=== PATIENT | female | born 1970 | race Caucasian/White ===

== ENCOUNTER 2017-12-06 19:48 | Emergency (ER) | payer MEDICARE, MEDICAID ==
[2017-12-06 20:50] VITALS: BP 149/89
--- NOTE | 2017-12-06 20:52 | EDM.PDOC ---
ED HPI GENERAL MEDICAL PROBLEM - General Chief Complaint: Lower Extremity Injury/Pain Stated Complaint: RIGHT LEG SWOLLEN Time Seen by Provider: 12/06/17 20:52 Source of Information: Reports: Patient History Limitations: Reports: No Limitations - History of Present Illness INITIAL COMMENTS - FREE TEXT/NARRATIVE: 47-year-old female attends the ED due to increased swelling and pain in her right lower extremity. She reports she fell going down some stairs outside her home about 9 days ago. She tripped and fell with direct blow to her right knee. She did attend the clinic and had x-rays done of the ankle she believes and it did not reveal any fractures. The knee was never x-rayed. Since that time she has been basically nonambulatory and resting a good deal. Over the last 2 days the leg has become much more ecchymotic swollen and erythematous over the anterior distal frye. The ankle itself is grossly edematous. She has no history of DVT. She denies shortness of breath or pleuritic chest pain or any hemoptysis. However O2 sats are 94% on room air. Onset: Gradual Onset Date: 11/27/17 Duration: Day(s): Location: Reports: Lower Extremity, Right (Tripped and fell while walking down stairs outside her home. She missed a step landing with a direct blow to her right anterior knee which became ecchymotic and swollen. She also injured her ankle. Apparently the ankle x-ray was obtained at the clinic but no fractures are identified.) Quality: Reports: Ache, Throbbing Severity: Moderate Improves with: Reports: None Worsens with: Reports: Movement Context: Reports: Trauma (Initial injury was trip and fall missing a stair outside her home with direct blow to the knee and injury to the ankle.). Denies : Activity (Especially attempt to walk.), Exercise, Sick Contact Associated Symptoms: Reports: No Other Symptoms Treatments [employer]: Reports: NSAIDS (Has been using 600 mg of Motrin every 6-8 hours.) Right Lower Knee Pain Score (Numeric/FACES): 5 - Related Data Allergies Allergy/AdvReac Type Severity Reaction Status Date / Time No Known Allergies Allergy Verified 12/06/17 20:51 Home Meds: Home Meds Lacosamide [Vimpat] 100 mg PO BID 02/18/14 [History] Phenytoin Sodium Extended [Dilantin] 100 mg PO QID 02/18/14 [History] ClonazePAM [KlonoPIN] 1 mg PO BID 06/20/14 [History] Past Medical History Neurological History: Reports: Seizure (Seizure disorder. She is on Dilantin and Vimpat.) Psychiatric History: Reports: Anxiety Social & Family History - Living Situation & Occupation Living situation: Reports: Single Occupation: Disabled Review of Systems - Review of Systems Review Of Systems: See Below Constitutional: Reports: No Symptoms Eyes: Reports: Glasses Ears: Reports: No Symptoms Nose: Reports: No Symptoms Mouth/Throat: Reports: No Symptoms Respiratory: Reports: No Symptoms Cardiovascular: Reports: No Symptoms GI/Abdominal: Reports: No Symptoms Genitourinary: Reports: No Symptoms Musculoskeletal: Reports: Other (Currently has right lower extremity pain from the knee down to the ankle.) Skin: Reports: Other (Has become erythematous ecchymotic and swollen distal tib- fib anteriorly. The entire leg is now very swollen.) Neurological: Reports: Other (Strip seizures well controlled on current medications) Psychiatric: Reports: Anxiety ED EXAM, GENERAL - Physical Exam Exam: See Below Exam Limited By: No Limitations General Appearance: Alert, WD/WN, No Apparent Distress Eye Exam: Bilateral Eye: Normal Inspection Throat/Mouth: Normal Inspection, Normal Lips, Normal Teeth, Normal Oropharynx Head: Atraumatic, Normocephalic Neck: Normal Inspection, Supple, Non-Tender, Full Range of Motion. No: Lymphadenopathy (L), Lymphadenopathy (R) Respiratory/Chest: No Respiratory Distress, Lungs Clear, Normal Breath Sounds, No Accessory Muscle Use, Chest Non-Tender. No: Rales, Rhonchi, Wheezing Cardiovascular: Regular Rate, Rhythm, No Gallop, No Murmur, No Rub. No: Normal Peripheral Pulses Peripheral Pulses: 0: Posterior Tibial (R), 1+: Dorsalis Pedis (R), 2+: Posterior Tibial (L), Dorsalis Pedis (L) (Marked swelling of the right lower extremity limits ability to palpate the posterior tibial pulse. The dorsalis pedis pulse appears to be normal.) Back Exam: Normal Inspection, Full Range of Motion Extremities: Other (Examination of the right lower extremity shows ecchymosis over the patella. Patellofemoral movement is normal. There is no crepitus or evidence of a patellar fracture clinically. Entire lower extremity is markedly edematous and swollen and skin is taut suggesting significant edema and possible DVT. There is an area of ecchymoses and slight erythema over the mid anterior distal leg. The ankle itself is markedly swollen both medially and laterally. She does have normal dorsiflexion of the foot.) Neurological: Alert, Oriented, CN II-XII Intact, Normal Cognition. No: Normal Gait Psychiatric: Normal Mood, Flat Affect Skin Exam: Warm, Intact, Normal Color Course - Vital Signs Last Recorded V/S: Last Vital Signs Temp 36.8 C 12/06/17 20:46 Pulse 100 12/06/17 20:46 Resp 18 12/06/17 20:46 BP 149/89 H 12/06/17 20:46 Pulse Ox 94 L 12/06/17 20:46 - Orders/Labs/Meds Orders: Active Orders 24 hr Category Date Time Status Tibia Fibula Rt [CR] Stat Exams 12/06/17 21:06 Taken VL Duplex Lwr Ext Veins Ltd Rt [US] Stat Exams 12/06/17 21:04 Taken Sodium Chloride 0.9% [Normal Saline] 1,000 ml Med 12/06/17 21:15 Active IV ASDIRECTED Medication Orders Sodium Chloride (Normal Saline) 1,000 mls @ 150 mls/hr IV ASDIRECTED KIM Last Admin: 12/06/17 21:36 Dose: 150 mls/hr Labs: Laboratory Tests 12/06/17 12/06/17 12/06/17 Range/Units 21:37 21:37 21:37 WBC 7.40 (3.98-10.04) K/mm3 RBC 4.49 (3.98-5.22) M/mm3 Hgb 14.0 (11.2-15.7) gm/L Hct 43.2 (34.1-44.9) % MCV 96.2 H (79.4-94.8) fl MCH 31.2 (25.6-32.2) pg MCHC 32.4 (32.2-35.5) g/dl RDW Std Deviation 47.3 H (36.4-46.3) fL Plt Count 174 L (182-369) K/mm3 MPV 12.0 (9.4-12.3) fl Neutrophils % (Manual) 38 L (40-60) % Band Neutrophils % 0 (0-10) % Lymphocytes % (Manual) 51 H (20-40) % Atypical Lymphs % 0 % Monocytes % (Manual) 9 (2-10) % Eosinophils % (Manual) 2 (0.7-5.8) % Basophils % (Manual) 0 L (0.1-1.2) Platelet Estimate Adequate RBC Morph Comment Normal PT 10.6 (9.5-12.1) SECONDS INR 0.97 APTT 26 (24-31) SECONDS Sodium 141 (136-145) mEq/L Potassium 3.3 L (3.5-5.1) mEq/L Chloride 106 (98-107) mEq/L Carbon Dioxide 27 (21-32) mEq/L Anion Gap 11.3 (5-15) BUN 9 (7-18) mg/dL Creatinine 0.8 (0.55-1.02) mg/dL Est Cr Clr Drug Dosing 79.63 mL/min Estimated GFR (MDRD) > 60 (>60) mL/min BUN/Creatinine Ratio 11.3 L (14-18) Glucose 101 (74-106) mg/dL Calcium 8.6 (8.5-10.1) mg/dL Total Bilirubin 0.1 L (0.2-1.0) mg/dL AST 12 L (15-37) U/L ALT 18 (14-59) U/L Alkaline Phosphatase 85 (46-116) U/L Total Protein 7.5 (6.4-8.2) g/dl Albumin 3.0 L (3.4-5.0) g/dl Globulin 4.5 gm/dL Albumin/Globulin Ratio 0.7 L (1-2) Phenytoin 3.4 L (10.0-20.0) ug/mL Meds: Medications Generic Name Dose Route Start Last Admin Trade Name Freq PRN Reason Stop Dose Admin Sodium Chloride 1,000 mls @ 150 mls/hr 12/06/17 21:15 12/06/17 21:36 Normal Saline IV 150 mls/hr ASDIRECTED KIM Administration - Radiology Interpretation Free Text/Narrative:: 47-year-old female attends the ED due to increased swelling and pain in her right lower extremity. Initial injury was 9 days ago when she tripped and fell on some stairs outside her home landing with a direct blow to her right knee. She also injured her ankle at that time. She was seen in the clinic the following day and x-rays were ankle apparently were obtained and did not reveal any fractures. She indicates no x-rays of the knee were obtained. Since that time she's been so much pain she has been relatively immobilized. Last 48 hours she is appreciated that the right lower extremities become much more swollen and taut and painful. Appreciates mild erythema and ecchymoses anterior aspect of the tibia distally. She is unable to weight-bear on the foot other than tippytoe weightbearing. Eyes any shortness of breath or pleuritic chest pain or hemoptysis. Note O2 sats only 94% on room air. Examination is strongly suspicious for a DVT in her right lower extremity. Plan x-rays of the right tib- fib to be done which will include her ankle and knee. Will not be ordered as it will be positive due to the amount of ecchymosis and swelling to the right lower extremity. Ultrasound will be carried out of the right lower extremity. - Re-Assessments/Exams Free Text/Narrative Re-Assessment/Exam: 12/06/17 22:25 Labs are back revealing a normal white count at 7.40. Differential is a right shift with 30% neutrophils no bands cells and 51% lymphocytes. MCV is mildly elevated at 96.2. Platelet count is normal at 174, 000. PT is 10.6 with an INR of 0.97. PTT is 26. Serum sodium is 141 with a potassium of 3.3. Cortisol 6 with a bicarbonate of 27. Anion gap is 11.3. BUNs 9 with a creatinine of 0.8. GFR is greater than 60. Glucose is 101 with a calcium of 8.6. Bilirubin is 0.1. Liver function otherwise normal. Dilantin level is 3.4 which is subtherapeutic. 12/06/17 22:29 x-ray of the right tib-fib and ankle reveal no fractures in the knee or ankle itself or tib-fib. Ultrasound of the lower extremity also shows no sign of DVT in the visualized common femoral-femoral, proximal deep femoral or popliteal veins. The veins demonstrate normal color flow normal compressible with normal phasic flow and augmentation response. No thrombus is visualized in the greater saphenous vein. No acute findings no popliteal cyst. Treatment will therefore be conservative with elevation of the leg is much as possible for the next 3 days. Continue Motrin 600 mg every 6 hours needed for pain relief. No constrictive bandages to raise wraps. Departure - Departure Time of Disposition: 22:42 Disposition: Home, Self-Care 01 Condition: Fair Clinical Impression: Contusion of right lower extremity Qualifiers: Encounter type: initial encounter Qualified Code(s): S80.11XA - Contusion of right lower leg, initial encounter - Discharge Information *PRESCRIPTION DRUG MONITORING PROGRAM REVIEWED*: No *COPY OF PRESCRIPTION DRUG MONITORING REPORT IN PATIENT KAYLYNN: No Referrals: PCP,None [Primary Care Provider] - Forms: ED Department Discharge Additional Instructions: Evaluation the emergency room today in regards to increased pain and swelling in the right lower extremity since initial injury 9 days ago. Initial injury was a trip and fall going down stairs outside of your home. Direct blow to the knee and injury to the ankle occurred at that time. X-rays of the ankle were previously done at the clinic and reportedly were normal. Repeat x-rays of the tib-fib including the knee and ankle today also revealed no evidence of broken bones. Concern arose due to the amount of swelling and bruising in the lower extremity of a possible blood clot. Therefore an ultrasound was done of the entire leg and no blood clots were identified. Therefore there is large amount of soft tissue swelling which means fluid is slipped outside of the veins under the skin causing the pain and swelling of the leg. Treatment is to elevate the leg is much as possible when you are sitting almost heart level --like 3 cushions when laying on the couch. Heat pack to the area for one half hour out of every 4 hours for the next 3 days until swelling resolves. Walking is much as possible will help the swelling go down. Expect gradual improvement over the next 2 weeks. Continue Motrin 600 mg every 6 hours as needed for pain relief. All of your other lab tests were completely normal today. - My Orders Last 24 Hours: My Active Orders 12/06/17 21:04 VL Duplex Lwr Ext Veins Ltd Rt [US] Stat 12/06/17 21:06 Tibia Fibula Rt [CR] Stat 12/06/17 21:15 Sodium Chloride 0.9% [Normal Saline] 1,000 ml IV ASDIRECTED - Assessment/Plan Last 24 Hours: My Active Orders 12/06/17 21:04 VL Duplex Lwr Ext Veins Ltd Rt [US] Stat 12/06/17 21:06 Tibia Fibula Rt [CR] Stat 12/06/17 21:15 Sodium Chloride 0.9% [Normal Saline] 1,000 ml IV ASDIRECTED
[2017-12-06] MEDS ORDERED: Sodium Chloride 0.9% 1,000 ML IV SCH (21:15)
== END 2017-12-06 23:03 | disposition home or self-care (01) ==
LOC: JD.ED 19:48
DX: S80.11XA Contusion of right lower leg, initial encounter (principal); X58.XXXA Exposure to other specified factors, initial encounter
CPT/HCPCS: 36415; 73590; 80053; 80185; 85007; 85027; 85610; 85730; 93971; 96360; 99284; J7040

== ENCOUNTER 2019-11-15 08:00 | Inpatient (IN) | payer MEDICARE, MEDICAID ==
[2019-12-06] MEDS ORDERED: Lidocaine 1%/Sod Bicarbonate in NS 8.4% 1 ML Syringe IDERM PRN (00:01)
[2019-12-06] MEDS ORDERED: Lactated Ringers 1,000 ML IV SCH (00:01)
[2019-12-06] MEDS ORDERED: Sodium Chloride 0.9% 10 ML Syringe FLUSH PRN (00:01)
[2019-12-06] MEDS ORDERED: Magnesium Hydroxide 400 MG/5 ML Susp 30 ML Cup PO PRN (06:35)
[2019-12-06] MEDS ORDERED: Naloxone 0.4 MG/ML SDV IVPUSH PRN (06:35)
[2019-12-06] MEDS ORDERED: Morphine 2 MG/ML SYRINGE IVPUSH PRN (06:35)
[2019-12-06] MEDS ORDERED: Ondansetron 4 MG/2 ML SDV IVPUSH PRN ×2 (06:35→09:34)
[2019-12-06] MEDS ORDERED: Bisacodyl 5 MG Tab PO PRN (06:35)
[2019-12-06] MEDS ORDERED: Cyclobenzaprine 10 MG Tab PO PRN (06:35)
[2019-12-06] MEDS ORDERED: Sennosides 8.6 MG Tab PO PRN (06:35)
[2019-12-06] MEDS ORDERED: Ketorolac 15 MG/ML SDV IVPUSH PRN ×2 (06:35→07:32)
[2019-12-06] MEDS ORDERED: Famotidine 20 MG Tab PO SCH (06:45)
[2019-12-06] MEDS ORDERED: ceFAZolin 2 GM in Premix Bag 1 BAG IV SCH (06:45)
[2019-12-06] MEDS ORDERED: Midazolam 1 MG/ML 2 ML SDV ONE ×2 (07:15→09:29)
[2019-12-06] MEDS ORDERED: Lidocaine 1% 4 ML ONE (07:15)
[2019-12-06] MEDS ORDERED: Propofol 200 MG/20 ML SDV ONE (07:15)
[2019-12-06] MEDS ORDERED: fentaNYL 100 MCG/2 ML SDV ONE (07:15)
[2019-12-06] MEDS ORDERED: EPINEPHrine 1 MG/ML SDV ONE (07:22)
[2019-12-06] MEDS ORDERED: Ropivacaine 0.5% 5 MG/ML 30 ML SDV ONE (07:22)
--- NOTE | 2019-12-06 08:02 | PCM.PREANE ---
Preanesthetic Assessment - Procedure Proposed Procedure: right tka - Anesthesia/Transfusion/Family Hx Anesthesia History: Prior Anesthesia Without Reaction Family History of Anesthesia Reaction: No Transfusion History: Unknown - Review of Systems General: No Symptoms Pulmonary: No Symptoms Cardiovascular: No Symptoms Gastrointestinal: No Symptoms Neurological: Seizure (last one 5 days ago- gets them monthly- no shaking just stares- moans- last 1-2 minutes) Other: Reports: Depression, Anxiety - Physical Assessment NPO Status Date: 12/05/19 NPO Status Time: 19:00 Vital Signs: Last Vital Signs Temp 98.4 F 12/06/19 07:20 Pulse 93 12/06/19 07:20 Resp 16 12/06/19 07:20 BP 142/94 H 12/06/19 07:20 Pulse Ox 95 12/06/19 07:20 Height: 5 ft 6 in Weight: 106.5 kg ASA Class: 3 Mental Status: Alert & Oriented x3 Airway Class: Mallampati = 1 Dentition: Reports: Normal Dentition Thyro-Mental Finger Breadths: 3 Mouth Opening Finger Breadths: 3 ROM/Head Extension: Full Lungs: Clear to Auscultation, Normal Respiratory Effort Cardiovascular: Regular Rate, Regular Rhythm - Lab Values: Laboratory Last Values COVID-19 PCR Not detected (NOT DETECT) 12/02/19 09:30 MRSA (PCR) Negative 11/16/19 11:10 - Allergies Allergies/Adverse Reactions: Allergies Allergy/AdvReac Type Severity Reaction Status Date / Time No Known Allergies Allergy Verified 12/06/19 07:53 - Blood Blood Available: No - Acknowledgements Anesthesia Type Planned: Spinal Pt an Appropriate Candidate for the Planned Anesthesia: Yes Alternatives and Risks of Anesthesia Discussed w Pt/Guardian: Yes Pt/Guardian Understands and Agrees with Anesthesia Plan: Yes PreAnesthesia Questionnaire HEENT History: Reports: Impaired Vision, Other (See Below) Other HEENT History: eustachian tube dysfunction, wears glasses Cardiovascular History: Reports: High Cholesterol, Hypertension, Other (See Below) Other Cardiovascular History: peripheral edema Respiratory History: Reports: None Gastrointestinal History: Reports: None Genitourinary History: Reports: None [employer] WORK[employer] History: Reports: None Musculoskeletal History: Reports: Osteoarthritis, Other (See Below) Other Musculoskeletal History: left radial head fracture Neurological History: Reports: Seizure Psychiatric History: Reports: Anxiety Endocrine/Metabolic History: Reports: Obesity/BMI 30+ Hematologic History: Reports: None Immunologic History: Reports: None Oncologic (Cancer) History: Reports: None Dermatologic History: Reports: None - Infectious Disease History Infectious Disease History: Reports: None - Past Surgical History Head Surgeries/Procedures: Reports: None HEENT Surgical History: Reports: Tonsillectomy Cardiovascular Surgical History: Reports: None Respiratory Surgical History: Reports: None GI Surgical History: Reports: Hernia Repair/Other Female Surgical History: Reports: Tubal Ligation Male Surgical History: Reports: None Endocrine Surgical History: Reports: None Neurological Surgical History: Reports: None Musculoskeletal Surgical History: Reports: None Oncologic Surgical History: Reports: None Dermatological Surgical History: Reports: None - SUBSTANCE USE Smoking Status *Q: Never Smoker Tobacco Use Within Last Twelve Months: No Second Hand Smoke Exposure: No Days Per Week of Alcohol Use: 0 Recreational Drug Use History: No - HOME MEDS Home Medications: Home Meds Phenytoin Sodium Extended [Dilantin] 300 mg PO BID 02/18/14 [History] ClonazePAM [KlonoPIN] 0.5 mg PO BID 06/20/14 [History] Cholecalciferol (Vitamin D3) [Vitamin D3] 5,000 unit PO DAILY 12/05/19 [History] Divalproex Sodium [Depakote] 1,500 mg PO BID 12/05/19 [History] Hydrocortisone Valerate [Hydrocortisone Valerate 0.2% Crm] 1 dose TOP ASDIRECTED PRN 12/05/19 [History] Lacosamide [Vimpat] 200 mg PO BID 12/05/19 [History] Multivitamin 1 tab PO DAILY 12/05/19 [History] Naproxen 500 mg PO BID 12/05/19 [History] Potassium Chloride 20 meq PO DAILY 12/05/19 [History] Rosuvastatin Calcium 20 mg PO DAILY 12/05/19 [History] - CURRENT (IN HOUSE) MEDS Current Meds: Current Medications Aspirin (Ecotrin) 325 mg PO BID KIM Bisacodyl (Dulcolax) 5 mg PO DAILY PRN PRN Reason: Constipation Morphine Sulfate 8 mg/Epinephrine HCl 0.3 mg/Cefuroxime Sodium 750 mg/Ketorolac Tromethamine 30 mg/Sodium Chloride 7.9 ml 0 mg .XX ASDIRECTED PRN PRN Reason: Pain Stop: 12/06/19 13:00 Cyclobenzaprine HCl (Flexeril) 5 mg PO TID PRN PRN Reason: Spasms Docusate Sodium (Colace) 100 mg PO BID KIM Famotidine (Pepcid) 20 mg PO Q12H [facility] Lactated Ringer's (Ringers, Lactated) 1,000 mls @ 125 mls/hr IV ASDIRECTED [facility] Stop: 12/06/19 23:00 Cefazolin Sodium/Dextrose 2 gm (/ Premix) 50 mls @ 100 mls/hr IV Q8H [facility] Stop: 12/06/19 23:59 Ketorolac Tromethamine (Toradol) 15 mg IVPUSH Q6H PRN PRN Reason: Pain Lidocaine/Sodium Bicarbonate (Buffered Lidocaine 1% In Ns 8.4%) 0.25 ml IDERM ONETIME PRN PRN Reason: Prior to IV Start Stop: 12/06/19 18:00 Magnesium Hydroxide (Milk Of Magnesia) 30 ml PO BID PRN PRN Reason: Constipation Morphine Sulfate (Morphine) 2 mg IVPUSH Q2H PRN PRN Reason: Breakthrough Pain Naloxone HCl (Narcan) 0.1 mg IVPUSH Q5M PRN PRN Reason: Oversedation Ondansetron HCl (Zofran) 4 mg IVPUSH Q6H PRN PRN Reason: Nausea/Vomiting Oxycodone/Acetaminophen (Percocet 325-5 Mg) 1 - 2 tab PO Q4H PRN PRN Reason: Pain Senna (Senna) 8.6 mg PO BID PRN PRN Reason: Constipation Sodium Chloride (Saline Flush) 10 ml FLUSH ASDIRECTED PRN PRN Reason: Keep Vein Open Stop: 12/06/19 18:00 Discontinued Medications Bupivacaine HCl (Sensorcaine-Mpf 0.25%) Confirm Administered Dose 30 ml .ROUTE .STK-MED ONE Stop: 12/06/19 07:42 Cefazolin Sodium (Ancef) Confirm Administered Dose 2 gm .ROUTE .STK-MED ONE Stop: 12/06/19 07:43 Epinephrine HCl (Adrenalin) Confirm Administered Dose 1 mg .ROUTE .STK-MED ONE Stop: 12/06/19 07:23 Famotidine (Pepcid) 20 mg PO Q12H [facility] Fentanyl (Sublimaze) Confirm Administered Dose 100 mcg .ROUTE .STK-MED ONE Stop: 12/06/19 07:16 Cefazolin Sodium/Dextrose 2 gm (/ Premix) 50 mls @ 100 mls/hr IV Q8H KIM Stop: 12/06/19 23:14 Lidocaine HCl (Xylocaine-Mpf 1%) Confirm Administered Dose 4 mls @ as directed .ROUTE .STK-MED ONE Stop: 12/06/19 07:16 Iodine (Iodine 2% Mild Tincture) Confirm Administered Dose 30 ml .ROUTE .STK-MED ONE Stop: 12/06/19 07:42 Ketorolac Tromethamine (Toradol) 15 mg IVPUSH Q6H PRN PRN Reason: Pain Midazolam HCl (Versed 1 Mg/Ml) Confirm Administered Dose 2 mg .ROUTE .STK-MED ONE Stop: 12/06/19 07:16 Propofol (Diprivan 20 Ml) Confirm Administered Dose 600 mg .ROUTE .STK-MED ONE Stop: 12/06/19 07:16 Ropivacaine (Naropin 0.5%) Confirm Administered Dose 30 ml .ROUTE .STK-MED ONE Stop: 12/06/19 07:23 Tranexamic Acid (Cyklokapron) Confirm Administered Dose 1,000 mg .ROUTE .STK-MED ONE Stop: 12/06/19 07:42 Vancomycin HCl (Vancomycin) Confirm Administered Dose 1 gm .ROUTE .STK-MED ONE Stop: 12/06/19 07:42
[2019-12-06] MEDS ORDERED: fentaNYL 100 MCG/2 ML SDV IVPUSH PRN (09:34)
[2019-12-06] MEDS ORDERED: HYDROmorphone 0.5 MG/0.5 ML Syringe IVPUSH PRN (09:34)
[2019-12-06] MEDS ORDERED: Lactated Ringers 1,000 ML ONE ×2 (10:11→10:42)
[2019-12-06] MEDS ORDERED: Ondansetron 4 MG/2 ML SDV ONE (10:11)
[2019-12-06] MEDS: Iodine/Sodium Iodide 2% Tincture 30 ML Bottle ONE ×2 (10:21→10:25)
[2019-12-06] MEDS: ceFAZolin 1 GM Vial ONE ×2 (10:21→10:28)
[2019-12-06] MEDS: Morphine 8 MG, EPINEPHrine 0.3 MG, Cefuroxime 750 MG, Ketorolac 30 MG, Sodium Chloride ... PRN ×10 (10:22→10:30)
[2019-12-06] MEDS: Bupivacaine 0.25% 10 ML SDV ONE ×2 (10:22→10:30)
[2019-12-06] MEDS: Vancomycin 1 GM SDV ONE ×2 (10:23→10:36)
[2019-12-06] MEDS ORDERED: Ketorolac 30 MG/ML SDV ONE (10:53)
--- NOTE | 2019-12-06 11:06 | PCM.POSTAN ---
POST ANESTHESIA ASSESSMENT - MENTAL STATUS Mental Status: Alert, Oriented - VITAL SIGNS Vital Signs: Last Vital Signs Temp 98.4 F 12/06/19 07:20 Pulse 93 12/06/19 07:20 Resp 16 12/06/19 07:20 BP 142/94 H 12/06/19 07:20 Pulse Ox 95 12/06/19 07:20 1102 112/68 15 79 97.6 96% - RESPIRATORY Respiratory Status: Respiratory Rate WNL, Airway Patent, O2 Saturation Stable, Supplemental Oxygen - CARDIOVASCULAR CV Status: Pulse Rate WNL, Blood Pressure Stable - GASTROINTESTINAL GI Status: No Symptoms - PAIN Pain Score: 0 - POST OP HYDRATION Hydration Status: Adequate & Stable
--- NOTE | 2019-12-06 11:26 | PCM.SN.2 ---
- Free Text/Narrative Note: Right selective femoral nerve block at the adductor canal for post-procedure pain control under US guidance requested by Dr. Horowitz. Date: 12/07/19 Time Out: 1110 Start: 1112 End: 1120 Chart reviewed. Consent signed. Questions answered. Appropriate monitors applied. Time out performed. Right mid-shaft femur identified with ultrasound, scanning medially of femur, the femoral artery in the adductor canal visualized, and the femoral nerve located laterally to the artery. The skin was prepped lateral to the ultrasound probe with chlorahexadine times two. The 21ga 4 insulated block needle was inserted under direct ultrasound guidance into the adductor canal. 25mL of 0.5% ropivacaine with 1:200,000 epinephrine was injected circumferentially around the nerve with intermittent negative aspiration noted. Patient tolerated the procedure well. Sterile technique noted along with sterile gloves, mask, and sterile probe cover. See picture on progress note and vital signs on nurses notes. Block completed in PACU. Kyle Brambila CRNA
--- NOTE | 2019-12-06 13:05 | CR ---
Right knee: AP and lateral views of the right knee were obtained. Comparison: No previous right knee exam. Knee prosthesis is seen. Components are aligned. Soft tissue air is noted from the surgical procedure. Impression: 1. Satisfactory postop radiographic appearance of recently placed right knee prosthesis. Diagnostic code #2 This report was dictated in MDT
[2019-12-06] MEDS ORDERED: HYDROCORTISONE VALERATE TOP PRN (14:47)
--- NOTE | 2019-12-06 14:50 | PCM.CONS ---
H&P History of Present Illness - General Date of Service: 12/06/19 Admit Problem/Dx: Admission Diagnosis/Problem Admission Diagnosis/Problem Osteoarthritis of knee Source of Information: Patient History Limitations: Reports: No Limitations - History of Present Illness Initial Comments - Free Text/Narative: The patient is a 49 year old female with a past medical history of dyslipidemia, osteoarthritis and seizure disorder. She is admitted to the hospital today under the care of Dr. Horowitz, orthopedic surgeon, who performed left total knee arthroplasty today. The hospitalist team is consulted for medical management of comorbid conditions. The patient tolerated surgery well. She denies history of internal bleeding or blood clotting. Last bowel movement was last night and was without any obvious blood and was not dark. She does have seizures that last about 1-2 minutes and usually happen monthly with her menstrual cycle. Her last seizure was about 4 weeks ago. Her pain is currently well controlled. She denies shortness of breath, palpitations, chest pain. She does no use oxygen or CPAP at home. No recent fevers or chills. No cough. Vital signs are stable. - Related Data Allergies/Adverse Reactions: Allergies Allergy/AdvReac Type Severity Reaction Status Date / Time No Known Allergies Allergy Verified 12/06/19 14:53 Home Medications: Home Meds Phenytoin Sodium Extended [Dilantin] 300 mg PO BID 02/18/14 [History] ClonazePAM [KlonoPIN] 0.5 mg PO BID 06/20/14 [History] Cholecalciferol (Vitamin D3) [Vitamin D3] 5,000 unit PO DAILY 12/05/19 [History] Divalproex Sodium [Depakote] 1,500 mg PO BID 12/05/19 [History] Hydrocortisone Valerate [Hydrocortisone Valerate 0.2% Crm] 1 dose TOP ASDIRECTED PRN 12/05/19 [History] Lacosamide [Vimpat] 200 mg PO BID 12/05/19 [History] Multivitamin 1 tab PO DAILY 12/05/19 [History] Naproxen 500 mg PO BID 12/05/19 [History] Potassium Chloride 20 meq PO DAILY 12/05/19 [History] Rosuvastatin Calcium 20 mg PO DAILY 12/05/19 [History] Past Medical History HEENT History: Reports: Impaired Vision, Other (See Below) Other HEENT History: eustachian tube dysfunction, wears glasses Cardiovascular History: Reports: High Cholesterol, Hypertension, Other (See Below) Other Cardiovascular History: peripheral edema Respiratory History: Reports: None Gastrointestinal History: Reports: None Genitourinary History: Reports: None 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: 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: None Musculoskeletal History: Reports: Osteoarthritis, Other (See Below) Other Musculoskeletal History: left radial head fracture Neurological History: Reports: Seizure Psychiatric History: Reports: Anxiety Endocrine/Metabolic History: Reports: Obesity/BMI 30+ Hematologic History: Reports: None Immunologic History: Reports: None Oncologic (Cancer) History: Reports: None Dermatologic History: Reports: None - Infectious Disease History Infectious Disease History: Reports: None - Past Surgical History Head Surgeries/Procedures: Reports: None HEENT Surgical History: Reports: Tonsillectomy Cardiovascular Surgical History: Reports: None Respiratory Surgical History: Reports: None GI Surgical History: Reports: Hernia Repair/Other Female Surgical History: Reports: Tubal Ligation Male Surgical History: Reports: None Endocrine Surgical History: Reports: None Neurological Surgical History: Reports: None Musculoskeletal Surgical History: Reports: None Oncologic Surgical History: Reports: None Dermatological Surgical History: Reports: None Social & Family History - Tobacco Use Smoking Status *Q: Never Smoker Second Hand Smoke Exposure: No - Caffeine Use Caffeine Use: Reports: Soda - Alcohol Use Days Per Week of Alcohol Use: 0 - Recreational Drug Use Recreational Drug Use: No - Living Situation & Occupation Living situation: Reports: Single Occupation: Disabled H&P Review of Systems - Review of Systems: Review Of Systems: See Below General: Denies: Fever, Weakness, Decreased Appetite HEENT: Denies: Headaches, Visual Changes Pulmonary: Denies: Shortness of Breath, Wheezing, Cough Cardiovascular: Reports: Edema (at the end of the day, feet swell). Denies: Chest Pain, Palpitations, Orthopnea Genitourinary: Denies: Frequency, Burning, Pain, Urgency Skin: Denies: Bruising, Rash Psychiatric: Reports: Anxiety. Denies: Confusion, Depression Neurological: Denies: Confusion, Dizziness, Headache, Numbness Hematologic/Lymphatic: Denies: Easy Bleeding Exam - Exam Exam: See Below - Vital Signs Vital Signs: Last Vital Signs Temp 98 F 12/06/19 11:50 Pulse 93 12/06/19 07:20 Resp 13 12/06/19 11:50 BP 124/83 12/06/19 11:50 Pulse Ox 96 12/06/19 11:50 Weight: 234 lb 12.677 oz - Exam General: Alert, Oriented, Cooperative HEENT: Mucosa Moist & [place], Pupils Equal, Pupils Reactive Neck: Supple, Trachea Midline Lungs: Clear to Auscultation, Normal Respiratory Effort. No: Crackles, Rales, Rhonchi, Wheezing Cardiovascular: Regular Rate, Regular Rhythm. No: Systolic Murmur, Rubs GI/Abdominal Exam: Normal Bowel Sounds, Soft, Non-Tender, No Distention Extremities: Normal Inspection, Normal Capillary Refill, Other (Right knee in ROSA bandage) Skin: Warm, Dry, Intact Neuro Extensive - Mental Status: Alert, Oriented x3, Normal Mood/Affect Psychiatric: Alert, Normal Affect, Normal Mood - Patient Data Result Diagrams: 12/06/19 14:19 12/06/19 15:52 Sepsis Event Note - Evaluation Sepsis Screening Result: No Definite Risk - Focused Exam Vital Signs: Vital Signs Temp Pulse Resp BP Pulse Ox Pulse Ox Pulse Ox 12/06/19 11:50 98 F 13 124/83 94 L 96 12/06/19 11:45 15 130/89 95 12/06/19 11:30 16 113/73 100 100 12/06/19 11:15 16 111/79 98 98 12/06/19 11:02 97.6 F 15 112/68 96 96 12/06/19 07:20 98.4 F 93 16 142/94 H 95 Consult PN Assessment/Plan Procedures: Procedures ASSAY DIPROPYLACETIC ACD TOT (10/21/17) ASSAY OF MAGNESIUM (02/18/14) ASSAY OF PHENYTOIN TOTAL (12/06/17) BL SMEAR W/DIFF WBC COUNT (12/06/17) COMPLETE CBC AUTOMATED (12/06/17) COMPLETE CBC W/AUTO DIFF WBC (02/18/14) COMPREHEN METABOLIC PANEL (12/06/17) ELECTROCARDIOGRAM TRACING (02/18/14) EMERGENCY DEPT VISIT (12/06/17) EMERGENCY DEPT VISIT (06/20/14) EMERGENCY DEPT VISIT (02/18/14) EXTREMITY STUDY (12/06/17) HYDRATE IV INFUSION ADD-ON (02/18/14) HYDRATION IV INFUSION INIT (12/06/17) IMMUNIZATION ADMIN (06/20/14) PROTHROMBIN TIME (12/06/17) ROUTINE VENIPUNCTURE (12/06/17) RPR S/N/AX/GEN/TRNK2.6-7.5CM (06/20/14) TDAP VACCINE 7 YRS/> IM (06/20/14) THROMBOPLASTIN TIME PARTIAL (12/06/17) X-RAY EXAM OF LOWER LEG (12/06/17) (1) Osteoarthritis of right knee SNOMED Code(s): 420129043908066 Code(s): M17.11 - UNILATERAL PRIMARY OSTEOARTHRITIS, RIGHT KNEE Current Visit: Yes (2) Dyslipidemia SNOMED Code(s): 893238152 Code(s): E78.5 - HYPERLIPIDEMIA, UNSPECIFIED Current Visit: Yes (3) Seizure disorder SNOMED Code(s): 906441535 Code(s): G40.909 - EPILEPSY, UNSP, NOT INTRACTABLE, WITHOUT STATUS EPILEPTICUS Current Visit: No (4) Thrombocytopenia SNOMED Code(s): 986296364 Code(s): D69.6 - THROMBOCYTOPENIA, UNSPECIFIED Current Visit: Yes (5) Hypokalemia SNOMED Code(s): 45610169 Code(s): E87.6 - HYPOKALEMIA Current Visit: Yes Problem List Initiated/Reviewed/Updated: Yes My Orders Last 24 Hours: My Active Orders 12/06/19 14:19 BMP [BASIC METABOLIC PANEL,BMP] [CHEM] Routine CBC WITH AUTO DIFF [HEME] Routine MAGNESIUM [CHEM] Routine PHOSPHORUS [CHEM] Routine Plan: Osteoarthritis s/p left knee arthroplasty POD 0 Persaud perioperative risk assessment indicates pt has a 0.12% risk of HI or cardiac arrest in post operative period. PLAN -Patient is admitted to hospital under Dr. Horowitz, orthopedic surgeon -PT ordered -Pain management as stated below -Will check cardiac enzymes after surgery. -DVT prophylaxis per Orthopedic surgery Seizure disorder Has partial seizures during menstruation each month Home medications of Depakote, clonazepam BID, lacosamide, and phenytoin PLAN -Continue Depakote 1500mg BID -Continue phenytoin 300mg oral BID -Continue Lacosamide 200mg oral BID -Continue clonazepam 0.5mg oral BID -Seizure precautions Thrombocytopenia Platelets are 87 PLAN -Holding off on aspirin, NSAIDs -Will check in AM -Watch for signs of bleeding Hypokalemia Potassium 3.3 PLAN -Giving KCl 40meq po x1. -Recheck in the AM. Vitamin D deficiency Pt takes Vitamin D3 5000u daily at home PLAN -Continue vitamin D supplementation. Hypercholesterolemia Home medication is rosuvastatin 20mg oral daily PLAN -Continue rosuvastatin. Obesity BMI 38 PLAN -Will discuss diet and exercise on discharge. -Will check Hgb A1c in AM. Infection prophylaxis. Pt was given cefazolin in perioperative period. Incentive spirometer. GI prophylaxis. Per orthopedic surgery- pepcid 20mg oral BID. Zofran 4mg IV q4h as needed for nausea. Constipation prophylaxis. Per orthopedic surgery- docusate BID scheduled, milk of mag and dulcolax suppository as needed for constipation. DVT prophylaxis. Hospital DVT prophylaxis per orthopedic surgery. For now, SCDs and antiembolic stockings. Trending H/H and platelets to decide on anticoagulation. Disposition. She will work with physical therapy to further assess if patient will need furth er work with rehabilitation. Discharge per orthopedic surgery.
[2019-12-06] MEDS ORDERED: LACOSAMIDE 200 MG PO SCH ×2 (15:00→21:00)
[2019-12-06] MEDS: ceFAZolin 2 GM in Premix Bag 1 BAG IV SCH ×2 (16:27→23:45)
[2019-12-06] MEDS: Phenytoin 100 MG Cap.ER PO SCH (16:28)
[2019-12-06] MEDS: ClonazePAM 0.5 MG Tab PO SCH (16:29)
[2019-12-06] MEDS ORDERED: Potassium Chloride 20 MEQ Tab.ER PO ONE (16:30)
[2019-12-06] MEDS: Acetaminophen/oxyCODONE 325-5 MG Tab PO PRN ×2 (17:46→23:47)
[2019-12-06] MEDS ORDERED: Phenytoin 100 MG Cap.ER PO SCH (21:00)
[2019-12-06] MEDS ORDERED: ClonazePAM 0.5 MG Tab PO SCH (21:00)
[2019-12-06] MEDS: Famotidine 20 MG Tab PO SCH (21:08)
[2019-12-06] MEDS: Docusate Sodium 100 MG Cap PO SCH (21:09)
[2019-12-06] MEDS: DIVALPROEX SODIUM 500 MG PO SCH ×2 (22:07→22:09)
[2019-12-07] MEDS: Phenytoin 100 MG Cap.ER PO SCH ×2 (03:18→14:27)
[2019-12-07] MEDS: LACOSAMIDE 200 MG PO SCH ×2 (03:18→14:28)
[2019-12-07] MEDS: ClonazePAM 0.5 MG Tab PO SCH ×2 (03:19→14:26)
[2019-12-07] MEDS: Acetaminophen/oxyCODONE 325-5 MG Tab PO PRN ×3 (03:25→15:13)
[2019-12-07 07:32] LABS: HEMOGLOBIN A1C 5.5 % (4.50-6.20)
[2019-12-07] MEDS: Famotidine 20 MG Tab PO SCH (08:16)
[2019-12-07] MEDS: Docusate Sodium 100 MG Cap PO SCH (08:17)
--- NOTE | 2019-12-07 08:20 | PCM48HPAN ---
Post Anesthesia Note - EVALUATION WITHIN 48HRS OF ANESTHETIC Vital Signs in Normal Range: Yes Patient Participated in Evaluation: Yes Respiratory Function Stable: Yes Airway Patent: Yes Cardiovascular Function Stable: Yes Hydration Status Stable: Yes Pain Control Satisfactory: Yes Nausea and Vomiting Control Satisfactory: Yes Mental Status Recovered: Yes Vital Signs: Last Vital Signs Temp 37.1 C 12/07/19 03:34 Pulse 93 12/06/19 23:48 Resp 20 12/07/19 03:34 BP 118/69 12/07/19 03:34 Pulse Ox 91 L 12/07/19 03:34 - COMMENTS/OBSERVATIONS Free Text/Narrative:: no anesthesia complications noted
--- NOTE | 2019-12-07 08:42 | PCM.SURGPN ---
- General Info Date of Service: 12/07/19 POD#: 1 Functional Status: Reports: Pain Controlled, Tolerating Diet, Ambulating, Urinating, Incentive Spirometry, Other (Nursing states the pt is doing well with mobility.) - Patient Data Vitals - Most Recent: Last Vital Signs Temp 98.8 F 12/07/19 03:34 Pulse 93 12/06/19 23:48 Resp 20 12/07/19 03:34 BP 118/69 12/07/19 03:34 Pulse Ox 91 L 12/07/19 03:34 Weight - Most Recent: 241 lb I&O - Last 24 Hours: Intake & Output 12/06/19 12/07/19 12/07/19 22:59 06:59 14:59 Intake Total 2120 250 Output Total 1500 Balance 2120 -1250 Lab Results Last 24 Hrs: Laboratory Results - last 24 hr 12/06/19 12/06/19 12/06/19 Range/Units 14:19 15:52 15:52 WBC 7.21 (3.98-10.04) K/mm3 RBC 3.02 L (3.98-5.22) M/mm3 Hgb 9.6 L D (11.2-15.7) gm/dl Hct 30.8 L (34.1-44.9) % MCV 102.0 H D (79.4-94.8) fl MCH 31.8 (25.6-32.2) pg MCHC 31.2 L (32.2-35.5) g/dl RDW Std Deviation 48.4 H (36.4-46.3) fL Plt Count 87 L D (182-369) K/mm3 MPV 12.0 (9.4-12.3) fl Neut % (Auto) 60.1 (34.0-71.1) % Lymph % (Auto) 23.9 (19.3-51.7) % Fisher % (Auto) 13.9 H (4.7-12.5) % Eos % (Auto) 1.9 (0.7-5.8) Baso % (Auto) 0.1 (0.1-1.2) % Neut # (Auto) 4.33 (1.56-6.13) K/mm3 Lymph # (Auto) 1.72 (1.18-3.74) K/mm3 Fisher # (Auto) 1.00 H (0.24-0.36) K/mm3 Eos # (Auto) 0.14 (0.04-0.36) K/mm3 Baso # (Auto) 0.01 (0.01-0.08) K/mm3 Manual Slide Review Abnormal smear Sodium 141 (136-145) mEq/L Potassium 3.3 L (3.5-5.1) mEq/L Chloride 106 (98-107) mEq/L Carbon Dioxide 29 (21-32) mEq/L Anion Gap 9.3 (5-15) BUN 8 (7-18) mg/dL Creatinine 0.8 (0.55-1.02) mg/dL Est Cr Clr Drug Dosing 77.88 mL/min Estimated GFR (MDRD) > 60 (>60) mL/min BUN/Creatinine Ratio 10.0 L (14-18) Glucose 121 H (74-106) mg/dL Hemoglobin A1c (4.50-6.20) % Calcium 8.2 L (8.5-10.1) mg/dL Phosphorus 2.8 (2.6-4.7) mg/dL Magnesium 1.8 (1.8-2.4) mg/dl Total Bilirubin (0.2-1.0) mg/dL AST (15-37) U/L ALT (14-59) U/L Alkaline Phosphatase (46-116) U/L Troponin I (0.00-0.056) ng/mL Total Protein (6.4-8.2) g/dl Albumin (3.4-5.0) g/dl Globulin gm/dL Albumin/Globulin Ratio (1-2) 12/07/19 12/07/19 12/07/19 Range/Units 06:05 06:05 06:05 WBC 8.36 (3.98-10.04) K/mm3 RBC 3.97 L (3.98-5.22) M/mm3 Hgb 12.7 D (11.2-15.7) gm/dl Hct 40.1 (34.1-44.9) % MCV 101.0 H (79.4-94.8) fl MCH 32.0 (25.6-32.2) pg MCHC 31.7 L (32.2-35.5) g/dl RDW Std Deviation 50.3 H (36.4-46.3) fL Plt Count 113 L (182-369) K/mm3 MPV 12.8 H (9.4-12.3) fl Neut % (Auto) (34.0-71.1) % Lymph % (Auto) (19.3-51.7) % Fisher % (Auto) (4.7-12.5) % Eos % (Auto) (0.7-5.8) Baso % (Auto) (0.1-1.2) % Neut # (Auto) (1.56-6.13) K/mm3 Lymph # (Auto) (1.18-3.74) K/mm3 Fisher # (Auto) (0.24-0.36) K/mm3 Eos # (Auto) (0.04-0.36) K/mm3 Baso # (Auto) (0.01-0.08) K/mm3 Manual Slide Review Sodium 139 (136-145) mEq/L Potassium 3.9 (3.5-5.1) mEq/L Chloride 105 (98-107) mEq/L Carbon Dioxide 25 (21-32) mEq/L Anion Gap 12.9 (5-15) BUN 7 (7-18) mg/dL Creatinine 0.8 (0.55-1.02) mg/dL Est Cr Clr Drug Dosing 77.88 mL/min Estimated GFR (MDRD) > 60 (>60) mL/min BUN/Creatinine Ratio 8.8 L (14-18) Glucose 126 H (74-106) mg/dL Hemoglobin A1c 5.50 (4.50-6.20) % Calcium 8.2 L (8.5-10.1) mg/dL Phosphorus (2.6-4.7) mg/dL Magnesium (1.8-2.4) mg/dl Total Bilirubin 0.3 (0.2-1.0) mg/dL AST 12 L (15-37) U/L ALT 19 (14-59) U/L Alkaline Phosphatase 61 (46-116) U/L Troponin I < 0.017 (0.00-0.056) ng/mL Total Protein 7.0 (6.4-8.2) g/dl Albumin 2.8 L (3.4-5.0) g/dl Globulin 4.2 gm/dL Albumin/Globulin Ratio 0.7 L (1-2) 12/07/19 Range/Units 07:50 WBC (3.98-10.04) K/mm3 RBC (3.98-5.22) M/mm3 Hgb (11.2-15.7) gm/dl Hct (34.1-44.9) % MCV (79.4-94.8) fl MCH (25.6-32.2) pg MCHC (32.2-35.5) g/dl RDW Std Deviation (36.4-46.3) fL Plt Count (182-369) K/mm3 MPV (9.4-12.3) fl Neut % (Auto) (34.0-71.1) % Lymph % (Auto) (19.3-51.7) % Fisher % (Auto) (4.7-12.5) % Eos % (Auto) (0.7-5.8) Baso % (Auto) (0.1-1.2) % Neut # (Auto) (1.56-6.13) K/mm3 Lymph # (Auto) (1.18-3.74) K/mm3 Fisher # (Auto) (0.24-0.36) K/mm3 Eos # (Auto) (0.04-0.36) K/mm3 Baso # (Auto) (0.01-0.08) K/mm3 Manual Slide Review Sodium (136-145) mEq/L Potassium (3.5-5.1) mEq/L Chloride (98-107) mEq/L Carbon Dioxide (21-32) mEq/L Anion Gap (5-15) BUN (7-18) mg/dL Creatinine (0.55-1.02) mg/dL Est Cr Clr Drug Dosing mL/min Estimated GFR (MDRD) (>60) mL/min BUN/Creatinine Ratio (14-18) Glucose (74-106) mg/dL Hemoglobin A1c (4.50-6.20) % Calcium (8.5-10.1) mg/dL Phosphorus 3.0 (2.6-4.7) mg/dL Magnesium 1.7 L (1.8-2.4) mg/dl Total Bilirubin (0.2-1.0) mg/dL AST (15-37) U/L ALT (14-59) U/L Alkaline Phosphatase (46-116) U/L Troponin I (0.00-0.056) ng/mL Total Protein (6.4-8.2) g/dl Albumin (3.4-5.0) g/dl Globulin gm/dL Albumin/Globulin Ratio (1-2) Med Orders - Current: Current Medications Aspirin (Ecotrin) 325 mg PO BID [facility] Bisacodyl (Dulcolax) 5 mg PO DAILY PRN PRN Reason: Constipation Cholecalciferol (Vitamin D3) 5,000 unit PO DAILY [facility] Last Admin: 12/07/19 08:17 Dose: 5,000 unit Documented by: Clonazepam (Klonopin) 0.5 mg PO BID@0400,1500 [facility] Last Admin: 12/07/19 03:19 Dose: 0.5 mg Documented by: Cyclobenzaprine HCl (Flexeril) 5 mg PO TID PRN PRN Reason: Spasms Divalproex Sodium (Depakote Er) 1,500 mg PO BID [facility] Last Admin: 12/06/19 22:09 Dose: Not Given Documented by: Docusate Sodium (Colace) 100 mg PO BID [facility] Last Admin: 12/07/19 08:17 Dose: 100 mg Documented by: Famotidine (Pepcid) 20 mg PO Q12H [facility] Last Admin: 12/07/19 08:16 Dose: 20 mg Documented by: Magnesium Hydroxide (Milk Of Magnesia) 30 ml PO BID PRN PRN Reason: Constipation Morphine Sulfate (Morphine) 2 mg IVPUSH Q2H PRN PRN Reason: Breakthrough Pain Multivitamins (Thera) 1 each PO DAILY [facility] Last Admin: 12/07/19 08:17 Dose: 1 each Documented by: Naloxone HCl (Narcan) 0.1 mg IVPUSH Q5M PRN PRN Reason: Oversedation Ondansetron HCl (Zofran) 4 mg IVPUSH Q6H PRN PRN Reason: Nausea/Vomiting Oxycodone/Acetaminophen (Percocet 325-5 Mg) 1 - 2 tab PO Q4H PRN PRN Reason: Pain Last Admin: 12/07/19 08:18 Dose: 2 tab Documented by: Lacosamide [Vimpat] (200 Mg Pt Own) 0 each PO BID@0400,1500 [facility] Last Admin: 12/07/19 03:18 Dose: 1 each Documented by: Phenytoin Sodium (Phenytoin) 300 mg PO BID@0400,1500 [facility] Last Admin: 12/07/19 03:18 Dose: 300 mg Documented by: Potassium Chloride (Klor-Con M20) 20 meq PO DAILY [facility] Last Admin: 12/07/19 08:17 Dose: 20 meq Documented by: Rivaroxaban (Xarelto) 10 mg PO ONETIME ONE Stop: 12/07/19 08:46 Rosuvastatin Calcium (Crestor) 20 mg PO DAILY [facility] Last Admin: 12/07/19 08:16 Dose: 20 mg Documented by: Senna (Senna) 8.6 mg PO BID PRN PRN Reason: Constipation Discontinued Medications Aspirin (Ecotrin) 325 mg PO BID [facility] Bupivacaine HCl (Sensorcaine-Mpf 0.25%) Confirm Administered Dose 30 ml .ROUTE .STK-MED ONE Stop: 12/06/19 07:42 Last Admin: 12/06/19 10:30 Dose: 30 ml Documented by: Cefazolin Sodium (Ancef) Confirm Administered Dose 2 gm .ROUTE .STK-MED ONE Stop: 12/06/19 07:43 Last Admin: 12/06/19 10:28 Dose: 2 gm Documented by: Clonazepam (Klonopin) 0.5 mg PO BID [facility] Morphine Sulfate 8 mg/Epinephrine HCl 0.3 mg/Cefuroxime Sodium 750 mg/Ketorolac Tromethamine 30 mg/Sodium Chloride 7.9 ml 0 mg .XX ASDIRECTED PRN PRN Reason: Pain Stop: 12/06/19 13:00 Last Admin: 12/06/19 10:30 Dose: 788.3 mg Documented by: Epinephrine HCl (Adrenalin) Confirm Administered Dose 1 mg .ROUTE .STK-MED ONE Stop: 12/06/19 07:23 Famotidine (Pepcid) 20 mg PO Q12H [facility] Last Admin: 12/06/19 19:29 Dose: Not Given Documented by: Fentanyl (Sublimaze) Confirm Administered Dose 100 mcg .ROUTE .STK-MED ONE Stop: 12/06/19 07:16 Fentanyl (Sublimaze) 50 mcg IVPUSH Q5M PRN PRN Reason: Pain Stop: 12/06/19 23:00 Hydromorphone HCl (Dilaudid) 0.5 mg IVPUSH Q10M PRN PRN Reason: Pain (severe 7-10) Stop: 12/06/19 23:00 Lactated Ringer's (Ringers, Lactated) 1,000 mls @ 125 mls/hr IV ASDIRECTED [facility] Stop: 12/06/19 23:00 Last Admin: 12/06/19 07:55 Dose: 125 mls/hr Documented by: Cefazolin Sodium/Dextrose 2 gm (/ Premix) 50 mls @ 100 mls/hr IV Q8H [facility] Stop: 12/06/19 23:14 Last Admin: 12/06/19 19:29 Dose: Not Given Documented by: Lidocaine HCl (Xylocaine-Mpf 1%) Confirm Administered Dose 4 mls @ as directed .ROUTE .STK-MED ONE Stop: 12/06/19 07:16 Cefazolin Sodium/Dextrose 2 gm (/ Premix) 50 mls @ 100 mls/hr IV Q8H [facility] Stop: 12/07/19 08:29 Last Admin: 12/06/19 23:45 Dose: 100 mls/hr Documented by: Lactated Ringer's (Ringers, Lactated) Confirm Administered Dose 1,000 mls @ as directed .ROUTE .STK-MED ONE Stop: 12/06/19 10:12 Lactated Ringer's (Ringers, Lactated) Confirm Administered Dose 1,000 mls @ as directed .ROUTE .STK-MED ONE Stop: 12/06/19 10:43 Iodine (Iodine 2% Mild Tincture) Confirm Administered Dose 30 ml .ROUTE .STK-MED ONE Stop: 12/06/19 07:42 Last Admin: 12/06/19 10:25 Dose: 18 ml Documented by: Ketorolac Tromethamine (Toradol) 15 mg IVPUSH Q6H PRN PRN Reason: Pain Ketorolac Tromethamine (Toradol) 15 mg IVPUSH Q6H PRN PRN Reason: Pain Ketorolac Tromethamine (Toradol) Confirm Administered Dose 30 mg .ROUTE .STK-MED ONE Stop: 12/06/19 10:54 Lidocaine/Sodium Bicarbonate (Buffered Lidocaine 1% In Ns 8.4%) 0.25 ml IDERM ONETIME PRN PRN Reason: Prior to IV Start Stop: 12/06/19 18:00 Last Admin: 12/06/19 07:55 Dose: 0.25 ml Documented by: Midazolam HCl (Versed 1 Mg/Ml) Confirm Administered Dose 2 mg .ROUTE .STK-MED ONE Stop: 12/06/19 07:16 Midazolam HCl (Versed 1 Mg/Ml) Confirm Administered Dose 2 mg .ROUTE .STK-MED ONE Stop: 12/06/19 09:30 Non-Formulary Medication (Hydrocortisone Valerate [Hydrocortisone Valerate 0.2% Crm]) 1 dose TOP ASDIRECTED PRN PRN Reason: skin complicaitons Ondansetron HCl (Zofran) 4 mg IVPUSH ONETIME PRN PRN Reason: Nausea/Vomiting Ondansetron HCl (Zofran) Confirm Administered Dose 4 mg .ROUTE .STK-MED ONE Stop: 12/06/19 10:12 Lacosamide [Vimpat] (200 Mg) 0 each PO BID [facility] Lacosamide [Vimpat] (200 Mg) 0 each PO BID@0400,1500 [facility] Last Admin: 12/06/19 17:00 Dose: 1 each Documented by: Phenytoin Sodium (Phenytoin) 300 mg PO BID [facility] Potassium Chloride (Klor-Con M20) 40 meq PO ONETIME ONE Stop: 12/06/19 16:31 Last Admin: 12/06/19 17:37 Dose: 40 meq Documented by: Propofol (Diprivan 20 Ml) Confirm Administered Dose 600 mg .ROUTE .STK-MED ONE Stop: 12/06/19 07:16 Rivaroxaban (Xarelto) 10 mg PO DAILY [facility] Last Admin: 12/07/19 08:18 Dose: 10 mg Documented by: Ropivacaine (Naropin 0.5%) Confirm Administered Dose 30 ml .ROUTE .STK-MED ONE Stop: 12/06/19 07:23 Sodium Chloride (Saline Flush) 10 ml FLUSH ASDIRECTED PRN PRN Reason: Keep Vein Open Stop: 12/06/19 18:00 Tranexamic Acid (Cyklokapron) Confirm Administered Dose 1,000 mg .ROUTE .STK-MED ONE Stop: 12/06/19 07:42 Last Admin: 12/06/19 10:34 Dose: 1,000 mg Documented by: Vancomycin HCl (Vancomycin) Confirm Administered Dose 1 gm .ROUTE .STK-MED ONE Stop: 12/06/19 07:42 Last Admin: 12/06/19 10:36 Dose: 1 gm Documented by: - Exam Wound/Incisions: Dressing Dry and Intact General: Alert, Cooperative, No Acute Distress Lungs: Normal Respiratory Effort Extremities: Other (NVS intact for RLE. Evangelista's negative for RLE.) Sepsis Event Note - Evaluation Sepsis Screening Result: No Definite Risk - Focused Exam Vital Signs: Vital Signs Temp Temp Pulse Resp BP BP Pulse Ox 12/07/19 03:34 98.8 F 20 118/69 91 L 12/06/19 23:48 98.1 F 93 16 128/84 99 12/06/19 20:49 98.4 F 85 18 128/78 93 L - Problem List Review Problem List Initiated/Reviewed/Updated: Yes - My Orders Last 24 Hours: Active Orders 24 hr Category Date Time Status Communication Order [RC] ASDIRECTED Care 12/07/19 08:36 Ordered Cooling Warming Measures [RC] ASDIRECTED Care 12/06/19 09:34 Active Oxygen Therapy [RC] ASDIRECTED Care 12/06/19 09:34 Active Pulse Oximetry [RC] ASDIRECTED Care 12/06/19 09:34 Active Ready for Discharge [RC] PER UNIT ROUTINE Care 12/07/19 08:36 Ordered Regular Diet [DIET] Diet 12/06/19 Lunch Active Aspirin [Ecotrin] Med 12/08/19 09:00 Active 325 mg PO BID Cholecalciferol (Vitamin D3) [Vitamin D3] Med 12/07/19 09:00 Active 5,000 unit PO DAILY ClonazePAM [KlonoPIN] Med 12/06/19 15:00 Active 0.5 mg PO BID@0400,1500 Divalproex Sodium [Depakote ER] Med 12/06/19 21:00 Active 1,500 mg PO BID Docusate Sodium [Colace] Med 12/06/19 21:00 Active 100 mg PO BID Famotidine [Pepcid] Med 12/06/19 21:00 Active 20 mg PO Q12H Multivitamins,Therapeutic [Thera] Med 12/07/19 09:00 Active 1 each PO DAILY Patient's Own Medication [Ptom] Med 12/07/19 04:00 Active 0 each PO BID@0400,1500 Phenytoin Med 12/06/19 15:00 Active 300 mg PO BID@0400,1500 Potassium Chloride [Klor-Con M20] Med 12/07/19 09:00 Active 20 meq PO DAILY Rivaroxaban [Xarelto] Med 12/07/19 09:00 Active 10 mg PO DAILY Rosuvastatin [Crestor] Med 12/07/19 09:00 Active 20 mg PO DAILY Seizure Precautions [OM.PC] Routine Oth 12/06/19 16:00 Ordered Medication Orders Aspirin (Ecotrin) 325 mg PO BID [facility] Bisacodyl (Dulcolax) 5 mg PO DAILY PRN PRN Reason: Constipation Cholecalciferol (Vitamin D3) 5,000 unit PO DAILY [facility] Last Admin: 12/07/19 08:17 Dose: 5,000 unit Documented by: GEORGES Clonazepam (Klonopin) 0.5 mg PO BID@0400,1500 [facility] Last Admin: 12/07/19 03:19 Dose: 0.5 mg Documented by: Admin: 12/06/19 16:29 Dose: 0.5 mg Documented by: SUZANNE Cyclobenzaprine HCl (Flexeril) 5 mg PO TID PRN PRN Reason: Spasms Divalproex Sodium (Depakote Er) 1,500 mg PO BID [facility] Last Admin: 12/06/19 22:09 Dose: Not Given Documented by: LEIA Docusate Sodium (Colace) 100 mg PO BID [facility] Last Admin: 12/07/19 08:17 Dose: 100 mg Documented by: Admin: 12/06/19 21:09 Dose: 100 mg Documented by: LEIA Famotidine (Pepcid) 20 mg PO Q12H [facility] Last Admin: 12/07/19 08:16 Dose: 20 mg Documented by: Admin: 12/06/19 21:08 Dose: 20 mg Documented by: LEIA Magnesium Hydroxide (Milk Of Magnesia) 30 ml PO BID PRN PRN Reason: Constipation Morphine Sulfate (Morphine) 2 mg IVPUSH Q2H PRN PRN Reason: Breakthrough Pain Multivitamins (Thera) 1 each PO DAILY [facility] Last Admin: 12/07/19 08:17 Dose: 1 each Documented by: GEORGES Naloxone HCl (Narcan) 0.1 mg IVPUSH Q5M PRN PRN Reason: Oversedation Ondansetron HCl (Zofran) 4 mg IVPUSH Q6H PRN PRN Reason: Nausea/Vomiting Oxycodone/Acetaminophen (Percocet 325-5 Mg) 1 - 2 tab PO Q4H PRN PRN Reason: Pain Last Admin: 12/07/19 08:18 Dose: 2 tab Documented by: Admin: 12/07/19 03:25 Dose: 2 tab Documented by: Admin: 12/06/19 23:47 Dose: 2 tab Documented by: Admin: 12/06/19 17:46 Dose: 2 tab Documented by: GEORGES Lacosamide [Vimpat] (200 Mg Pt Own) 0 each PO BID@0400,1500 [facility] Last Admin: 12/07/19 03:18 Dose: 1 each Documented by: NICOLE Phenytoin Sodium (Phenytoin) 300 mg PO BID@0400,1500 [facility] Last Admin: 12/07/19 03:18 Dose: 300 mg Documented by: Admin: 12/06/19 16:28 Dose: 300 mg Documented by: SUZANNE Potassium Chloride (Klor-Con M20) 20 meq PO DAILY [facility] Last Admin: 12/07/19 08:17 Dose: 20 meq Documented by: [id number] Rivaroxaban (Xarelto) 10 mg PO ONETIME ONE Stop: 12/07/19 08:46 Rosuvastatin Calcium (Crestor) 20 mg PO DAILY [facility] Last Admin: 12/07/19 08:16 Dose: 20 mg Documented by: [id number] Senna (Senna) 8.6 mg PO BID PRN PRN Reason: Constipation - Assessment Assessment (Free Text/Narrative):: POD#1 - right TKA - Plan Plan (Free Text/Narrative):: 1. Discharge to home today if inpt therapy goals met and cleared by Hospitalist service. 2. Hgb 12.7. 3. ASA for VTE prophylaxis for home. Pepcid rx. Discussed ASA with Hospitalist service and pharmacy. 4. Outpatient therapy. The pt's case was discussed with Dr. Horowitz.
[2019-12-07] MEDS ORDERED: Rivaroxaban 10 MG Tab PO ONE (08:45)
[2019-12-07] MEDS ORDERED: Aspirin 325 MG Tab.EC PO SCH (09:00)
[2019-12-07] MEDS ORDERED: Rosuvastatin 10 MG Tab PO SCH (09:00)
[2019-12-07] MEDS ORDERED: Multivitamins,Therapeutic Tab PO SCH (09:00)
[2019-12-07] MEDS ORDERED: Cholecalciferol (Vitamin D3) 5,000 UNIT Tab PO SCH (09:00)
[2019-12-07] MEDS ORDERED: Rivaroxaban 10 MG Tab PO SCH (09:00)
[2019-12-07] MEDS ORDERED: Potassium Chloride 20 MEQ Tab.ER PO SCH (09:00)
[2019-12-07] MEDS: ceFAZolin 2 GM in Premix Bag 1 BAG IV SCH (09:57)
[2019-12-07] MEDS: DIVALPROEX SODIUM 500 MG PO SCH (10:01)
--- NOTE | 2019-12-07 11:20 | PCM.CONSN ---
- General Info Date of Service: 12/07/19 Admission Dx/Problem (Free Text): Admission Diagnosis/Problem Admission Diagnosis/Problem Osteoarthritis of knee Subjective Update: The patient today is seen by me at bedside. She worked with PT today who recommends home with outpatient PT. She was able to go up and down a few stairs with PT and feels safe being able to go up 3 stairs to get into her house. Her pain has been well controlled. No seizure activity during hospitalization. Last BM was 12/04. Patient is passing gas and does not feel constipated. No Nausea. Tolerates diet. Vital signs stable. Functional Status: Reports: Pain Controlled, Tolerating Diet, Ambulating, Urinating - Review of Systems General: Denies: Fever, Weakness, Fatigue, Chills HEENT: Reports: No Symptoms Pulmonary: Denies: Shortness of Breath, Cough, Wheezing Cardiovascular: Denies: Chest Pain, Palpitations, Dyspnea on Exertion, Lightheadedness Gastrointestinal: Denies: Abdominal Pain, Diarrhea, Nausea, Vomiting Genitourinary: Reports: Other (started menstruation today). Denies: Dysuria Skin: Reports: No Symptoms Neurological: Denies: Confusion, Dizziness, Headache - Patient Data Vitals - Most Recent: Last Vital Signs Temp 98.8 F 12/07/19 08:05 Pulse 89 12/07/19 08:05 Resp 20 12/07/19 08:05 BP 119/89 12/07/19 08:05 Pulse Ox 94 L 12/07/19 08:05 Weight - Most Recent: 241 lb I&O - Last 24 Hours: Intake & Output 12/06/19 12/07/19 12/07/19 22:59 06:59 14:59 Intake Total 2120 250 Output Total 1500 Balance 2120 -1250 - Exam General: Alert, Oriented, Cooperative, No Acute Distress HEENT: Pupils Equal, Pupils Reactive, EOMI Neck: Supple Lungs: Clear to Auscultation, Normal Respiratory Effort Cardiovascular: Regular Rate, Regular Rhythm, No Murmurs GI/Abdominal Exam: Normal Bowel Sounds, Soft, Non-Tender, No Distention Extremities: Normal Inspection, No Pedal Edema, Normal Capillary Refill Skin: Warm, Dry, Intact Psy/Mental Status: Alert, Normal Affect, Normal Mood Sepsis Event Note - Evaluation Sepsis Screening Result: No Definite Risk Consult PN Assessment/Plan (1) Osteoarthritis of right knee SNOMED Code(s): 757540527278136 Code(s): M17.11 - UNILATERAL PRIMARY OSTEOARTHRITIS, RIGHT KNEE Current Visit: Yes (2) Dyslipidemia SNOMED Code(s): 240161965 Code(s): E78.5 - HYPERLIPIDEMIA, UNSPECIFIED Current Visit: Yes (3) Seizure disorder SNOMED Code(s): 166274955 Code(s): G40.909 - EPILEPSY, UNSP, NOT INTRACTABLE, WITHOUT STATUS EPILEPTICUS Current Visit: No (4) Thrombocytopenia SNOMED Code(s): 804656236 Code(s): D69.6 - THROMBOCYTOPENIA, UNSPECIFIED Current Visit: Yes (5) Hypokalemia SNOMED Code(s): 99509014 Code(s): E87.6 - HYPOKALEMIA Current Visit: Yes (6) Hypomagnesemia SNOMED Code(s): 365856697 Code(s): E83.42 - HYPOMAGNESEMIA Current Visit: Yes Problem List Initiated/Reviewed/Updated: Yes Plan: Osteoarthritis s/p left knee arthroplasty POD 1 PT recommends outpatient physical therapy. Pain is controlled PLAN -Patient discharged today. -Orthopedic surgery has prescribed Percocet 5/325 for pain control -Outpatient physical therapy -DVT prophylaxis per ortho with aspirin 325mg oral BID Seizure disorder No seizure activity during hospital stay PLAN -Continue Depakote 1500mg BID -Continue phenytoin 300mg oral BID -Continue Lacosamide 200mg oral BID -Continue clonazepam 0.5mg oral BID Thrombocytopenia Platelets are 113 today improved from 87 H/H stable w/ hgb 12.7, Hct 40.1 Pt did start menstrual cycle today but no other obvious bleeding PLAN -Pt will have follow up with PCP within 1 week for repeat labs -Discussed increased risk of bleeding Hypomagnesemia Magnesium 1.7 PLAN -Giving Mg sulfate 2g IV x1 prior to discharge. Hypokalemia-resolved Potassium 3.9 Vitamin D deficiency -Continue vitamin D supplementation. Hypercholesterolemia -Continue rosuvastatin. Obesity BMI 38, Hgb A1c 5.5% PLAN -Discussed diet and exercise PROPHYLAXIS GI- Docusate BID scheduled DVT- per ortho with aspirin 325mg oral BID. CODE STATUS Full code DISPOSITION She is discharged home today with outpatient physical therapy. Follow up with PCP within 1 week.
[2019-12-07] MEDS: Magnesium Sulfate/Water 2 GM in Premix Bag 1 BAG IV SCH ×2 (11:28→13:08)
--- NOTE | 2019-12-07 12:42 | PCM.DCSUM1 ---
Discharge Summary - Hospital Course Brief History: Gissell is a 49 yo female who underwent right TKA with Dr. Horowitz on 12-06-2019. The procedure was completed under spinal anesthesia with sedation. The pt received a post-operative adductor canal block. The pt tolerated the procedure well and was admitted to the Medical-Surgical Unit. Medical management was provided by the Hospitalist service. The pt's Hospital course was remarkable for thrombocytopenia which was monitored by the Hospitalist service. The pt's Hgb on POD#1 was 12.7. On POD#1, the pt was given a dose of Xarelto 20mg PO and will be transitioned 325mg ASA BID at discharge. SCDs and TEDs were also ordered. A Mepilex dressing was placed at the incision site at the time of surgery and remained clean and dry. The pt participated in P.T. and O.T. and progressed well. The pt was allowed to WBAT and used a FWW for mobility. On POD#1, the pt was deemed appropriate to discharge to home with her significant other. - Discharge Data Discharge Date: 12/07/19 Discharge Disposition: Home, Self-Care 01 Condition: Good - Referral to Home Health Primary Care Physician: Breanne Junior NP - Patient Summary/Data Consults: Consultations 12/06/19 06:34 OT Evaluation and Treatment [CONS] Routine PT Evaluation and Treatment [CONS] Routine 12/06/19 06:35 Consult to Physician [CONS] Routine - Patient Instructions Diet: Usual Diet as Tolerated Activity: Apply Ice, As Tolerated, Elevate Extremity, Full Weight Bearing Driving: Do Not Drive Showering/Bathing: May Shower Wound/Incision Care: Keep Operative Site/Wound Site Clean and Dry, Do NOT Change Dressing Notify Provider of: Fever, Increased Pain, Swelling and Redness, Drainage, Nausea and/or Vomiting Other/Special Instructions: Please get up and moving around EVERY HOUR while awake. This helps to prevent blood clots. Please use your walker and have help with mobility as needed. Take a short walk in your home every hour while awake. Please take 325mg aspirin TWICE daily. The aspirin is being used for blood clot prevention and not for pain management so please do not miss a dose of the medication. Please take Pepcid twice daily to protect your stomach while you are using the aspirin. At home, please complete the exercises that you learned during the Hospital stay. Schedule for physical therapy. Use the pain medication as needed. The medication may cause drowsiness and constipation. Contact your primary care provider for instructions if you are constipated. You have been prescribed a medication called docusate sodium or Colace 100mg twice daily to help decrease constipation. Increase your water and fiber intake while you are using the pain medication. Please discontinue use of the prescription pain medication as soon as able. The goal is to use the least amount of prescription pain medication as needed and to discontinue use of the prescription pain medication as soon as possible. Please do not use other medications that may cause drowsiness (other pain medications, anxiety pills, cold medications, sleeping pills, etc) while using the prescription pain medication. Do not use alcohol while using the pain medication. You may use acetaminophen or Tylenol for pain management, however, please ensure you are not using over 4000 mg or 4 grams of acetaminophen per day from all sources. Your pain medication has 325mg of acetaminophen per tablet. At this time, please do not use ibuprofen (Motrin, Advil) or naproxen (Aleve) for pain management as you are using the aspirin. When the aspirin course is completed in 4 weeks, you could use ibuprofen or naproxen for pain management (if this is allowed by your primary care provider). Wear the ASHLEY hose during the day and you may remove these at night. Elevate the limb to decrease swelling. Place ice to the area often. Place a towel between your skin and the blue pad. Use the incentive spirometer often. Take deep breaths throughout the day. Please keep the dressing in place until follow-up. Notify the Clinic if the dressing becomes saturated. Increase your protein intake while you are healing. It is normal to have swelling and bruising at the surgical site, as well as above and below the surgical site. PLEASE schedule a follow-up appointment with your primary care provider later this week to have your platelets checked. Call the Clinic with questions or concerns - [phone] and leave a message for the nurse. - Discharge Plan *PRESCRIPTION DRUG MONITORING PROGRAM REVIEWED*: No *COPY OF PRESCRIPTION DRUG MONITORING REPORT IN PATIENT KAYLYNN: No Prescriptions/Med Rec: Aspirin [Aspirin EC] 325 mg PO BID #60 tablet. Docusate Sodium [Colace] 100 mg PO BID #60 cap Famotidine [Pepcid] 20 mg PO Q12H #60 tablet Acetaminophen/oxyCODONE [Percocet 325-5 MG] 1 - 2 tab PO Q4H PRN #60 tablet PRN Reason: Pain Home Medications: Home Meds Phenytoin Sodium Extended [Dilantin] 300 mg PO BID 02/18/14 [History] ClonazePAM [KlonoPIN] 0.5 mg PO BID 06/20/14 [History] Cholecalciferol (Vitamin D3) [Vitamin D3] 5,000 unit PO DAILY 12/05/19 [History] Divalproex Sodium [Depakote] 1,500 mg PO BID 12/05/19 [History] Hydrocortisone Valerate [Hydrocortisone Valerate 0.2% Crm] 1 dose TOP ASDIRECTED PRN 12/05/19 [History] Lacosamide [Vimpat] 200 mg PO BID 12/05/19 [History] Multivitamin 1 tab PO DAILY 12/05/19 [History] Potassium Chloride 20 meq PO DAILY 12/05/19 [History] Rosuvastatin Calcium 20 mg PO DAILY 12/05/19 [History] Acetaminophen/oxyCODONE [Percocet 325-5 MG] 1 - 2 tab PO Q4H PRN #60 tablet 12/07/19 [Rx] Aspirin [Aspirin EC] 325 mg PO BID #60 tablet. 12/07/19 [Rx] Docusate Sodium [Colace] 100 mg PO BID #60 cap 12/07/19 [Rx] Famotidine [Pepcid] 20 mg PO Q12H #60 tablet 12/07/19 [Rx] Sennosides [Senna] 8.6 mg PO BID PRN tablet 12/07/19 [Rx] bisacodyL [Dulcolax] 5 mg PO DAILY PRN tablet 12/07/19 [Rx] Patient Handouts: Total Knee Replacement, [id number] Referrals: Breanne Junior NP [Primary Care Provider] - 12/14/19 8:15 am (Please check in at 8:00am.) Arianne Red PA-C [Physician [employer]] - (12/13 944 Arianne Red PA-C 12/13 1030 Lexie Briceno, PT 12/20 0945 Arianne Red PA-C 01/18 1200 Arianne Red PA-C) - Discharge Summary/Plan Comment DC Time >30 min.: No - Patient Data Vitals - Most Recent: Last Vital Signs Temp 98.8 F 12/07/19 08:05 Pulse 89 12/07/19 08:05 Resp 20 12/07/19 08:05 BP 119/89 12/07/19 08:05 Pulse Ox 94 L 12/07/19 08:05 Weight - Most Recent: 241 lb I&O - Last 24 hours: Intake & Output 12/06/19 12/07/19 12/07/19 22:59 06:59 14:59 Intake Total 2120 250 Output Total 1500 Balance 2120 -1250 Lab Results - Last 24 hrs: Laboratory Results - last 24 hr 12/06/19 12/06/19 12/06/19 Range/Units 14:19 15:52 15:52 WBC 7.21 (3.98-10.04) K/mm3 RBC 3.02 L (3.98-5.22) M/mm3 Hgb 9.6 L D (11.2-15.7) gm/dl Hct 30.8 L (34.1-44.9) % MCV 102.0 H D (79.4-94.8) fl MCH 31.8 (25.6-32.2) pg MCHC 31.2 L (32.2-35.5) g/dl RDW Std Deviation 48.4 H (36.4-46.3) fL Plt Count 87 L D (182-369) K/mm3 MPV 12.0 (9.4-12.3) fl Neut % (Auto) 60.1 (34.0-71.1) % Lymph % (Auto) 23.9 (19.3-51.7) % Iron % (Auto) 13.9 H (4.7-12.5) % Eos % (Auto) 1.9 (0.7-5.8) Baso % (Auto) 0.1 (0.1-1.2) % Neut # (Auto) 4.33 (1.56-6.13) K/mm3 Lymph # (Auto) 1.72 (1.18-3.74) K/mm3 Iron # (Auto) 1.00 H (0.24-0.36) K/mm3 Eos # (Auto) 0.14 (0.04-0.36) K/mm3 Baso # (Auto) 0.01 (0.01-0.08) K/mm3 Manual Slide Review Abnormal smear Sodium 141 (136-145) mEq/L Potassium 3.3 L (3.5-5.1) mEq/L Chloride 106 (98-107) mEq/L Carbon Dioxide 29 (21-32) mEq/L Anion Gap 9.3 (5-15) BUN 8 (7-18) mg/dL Creatinine 0.8 (0.55-1.02) mg/dL Est Cr Clr Drug Dosing 77.88 mL/min Estimated GFR (MDRD) > 60 (>60) mL/min BUN/Creatinine Ratio 10.0 L (14-18) Glucose 121 H (74-106) mg/dL Hemoglobin A1c (4.50-6.20) % Calcium 8.2 L (8.5-10.1) mg/dL Phosphorus 2.8 (2.6-4.7) mg/dL Magnesium 1.8 (1.8-2.4) mg/dl Total Bilirubin (0.2-1.0) mg/dL AST (15-37) U/L ALT (14-59) U/L Alkaline Phosphatase (46-116) U/L Troponin I (0.00-0.056) ng/mL Total Protein (6.4-8.2) g/dl Albumin (3.4-5.0) g/dl Globulin gm/dL Albumin/Globulin Ratio (1-2) 12/07/19 12/07/19 12/07/19 Range/Units 06:05 06:05 06:05 WBC 8.36 (3.98-10.04) K/mm3 RBC 3.97 L (3.98-5.22) M/mm3 Hgb 12.7 D (11.2-15.7) gm/dl Hct 40.1 (34.1-44.9) % MCV 101.0 H (79.4-94.8) fl MCH 32.0 (25.6-32.2) pg MCHC 31.7 L (32.2-35.5) g/dl RDW Std Deviation 50.3 H (36.4-46.3) fL Plt Count 113 L (182-369) K/mm3 MPV 12.8 H (9.4-12.3) fl Neut % (Auto) (34.0-71.1) % Lymph % (Auto) (19.3-51.7) % Iron % (Auto) (4.7-12.5) % Eos % (Auto) (0.7-5.8) Baso % (Auto) (0.1-1.2) % Neut # (Auto) (1.56-6.13) K/mm3 Lymph # (Auto) (1.18-3.74) K/mm3 Iron # (Auto) (0.24-0.36) K/mm3 Eos # (Auto) (0.04-0.36) K/mm3 Baso # (Auto) (0.01-0.08) K/mm3 Manual Slide Review Sodium 139 (136-145) mEq/L Potassium 3.9 (3.5-5.1) mEq/L Chloride 105 (98-107) mEq/L Carbon Dioxide 25 (21-32) mEq/L Anion Gap 12.9 (5-15) BUN 7 (7-18) mg/dL Creatinine 0.8 (0.55-1.02) mg/dL Est Cr Clr Drug Dosing 77.88 mL/min Estimated GFR (MDRD) > 60 (>60) mL/min BUN/Creatinine Ratio 8.8 L (14-18) Glucose 126 H (74-106) mg/dL Hemoglobin A1c 5.50 (4.50-6.20) % Calcium 8.2 L (8.5-10.1) mg/dL Phosphorus (2.6-4.7) mg/dL Magnesium (1.8-2.4) mg/dl Total Bilirubin 0.3 (0.2-1.0) mg/dL AST 12 L (15-37) U/L ALT 19 (14-59) U/L Alkaline Phosphatase 61 (46-116) U/L Troponin I < 0.017 (0.00-0.056) ng/mL Total Protein 7.0 (6.4-8.2) g/dl Albumin 2.8 L (3.4-5.0) g/dl Globulin 4.2 gm/dL Albumin/Globulin Ratio 0.7 L (1-2) 12/06/ Range/Units 07:50 WBC (3.98-10.04) K/mm3 RBC (3.98-5.22) M/mm3 Hgb (11.2-15.7) gm/dl Hct (34.1-44.9) % MCV (79.4-94.8) fl MCH (25.6-32.2) pg MCHC (32.2-35.5) g/dl RDW Std Deviation (36.4-46.3) fL Plt Count (182-369) K/mm3 MPV (9.4-12.3) fl Neut % (Auto) (34.0-71.1) % Lymph % (Auto) (19.3-51.7) % Iron % (Auto) (4.7-12.5) % Eos % (Auto) (0.7-5.8) Baso % (Auto) (0.1-1.2) % Neut # (Auto) (1.56-6.13) K/mm3 Lymph # (Auto) (1.18-3.74) K/mm3 Iron # (Auto) (0.24-0.36) K/mm3 Eos # (Auto) (0.04-0.36) K/mm3 Baso # (Auto) (0.01-0.08) K/mm3 Manual Slide Review Sodium (136-145) mEq/L Potassium (3.5-5.1) mEq/L Chloride (98-107) mEq/L Carbon Dioxide (21-32) mEq/L Anion Gap (5-15) BUN (7-18) mg/dL Creatinine (0.55-1.02) mg/dL Est Cr Clr Drug Dosing mL/min Estimated GFR (MDRD) (>60) mL/min BUN/Creatinine Ratio (14-18) Glucose (74-106) mg/dL Hemoglobin A1c (4.50-6.20) % Calcium (8.5-10.1) mg/dL Phosphorus 3.0 (2.6-4.7) mg/dL Magnesium 1.7 L (1.8-2.4) mg/dl Total Bilirubin (0.2-1.0) mg/dL AST (15-37) U/L ALT (14-59) U/L Alkaline Phosphatase (46-116) U/L Troponin I (0.00-0.056) ng/mL Total Protein (6.4-8.2) g/dl Albumin (3.4-5.0) g/dl Globulin gm/dL Albumin/Globulin Ratio (1-2) Med Orders - Current: Current Medications Aspirin (Ecotrin) 325 mg PO BID [facility] Bisacodyl (Dulcolax) 5 mg PO DAILY PRN PRN Reason: Constipation Cholecalciferol (Vitamin D3) 5,000 unit PO DAILY [facility] Last Admin: 12/07/19 08:17 Dose: 5,000 unit Documented by: Clonazepam (Klonopin) 0.5 mg PO BID@0400,1500 [facility] Last Admin: 12/07/19 03:19 Dose: 0.5 mg Documented by: Cyclobenzaprine HCl (Flexeril) 5 mg PO TID PRN PRN Reason: Spasms Divalproex Sodium (Depakote Er) 1,500 mg PO BID [facility] Last Admin: 12/07/19 10:01 Dose: 1,500 mg Documented by: Docusate Sodium (Colace) 100 mg PO BID [facility] Last Admin: 12/07/19 08:17 Dose: 100 mg Documented by: Famotidine (Pepcid) 20 mg PO Q12H [facility] Last Admin: 12/07/19 08:16 Dose: 20 mg Documented by: Magnesium Sulfate 2 gm/ Premix 50 mls @ 25 mls/hr IV Q1H [facility] Stop: 12/07/19 13:29 Last Admin: 12/07/19 11:28 Dose: 25 mls/hr Documented by: Magnesium Hydroxide (Milk Of Magnesia) 30 ml PO BID PRN PRN Reason: Constipation Morphine Sulfate (Morphine) 2 mg IVPUSH Q2H PRN PRN Reason: Breakthrough Pain Multivitamins (Thera) 1 each PO DAILY [facility] Last Admin: 12/07/19 08:17 Dose: 1 each Documented by: Naloxone HCl (Narcan) 0.1 mg IVPUSH Q5M PRN PRN Reason: Oversedation Ondansetron HCl (Zofran) 4 mg IVPUSH Q6H PRN PRN Reason: Nausea/Vomiting Oxycodone/Acetaminophen (Percocet 325-5 Mg) 1 - 2 tab PO Q4H PRN PRN Reason: Pain Last Admin: 12/07/19 08:18 Dose: 2 tab Documented by: Lacosamide [Vimpat] (200 Mg Pt Own) 0 each PO BID@0400,1500 [facility] Last Admin: 12/07/19 03:18 Dose: 1 each Documented by: Phenytoin Sodium (Phenytoin) 300 mg PO BID@0400,1500 [facility] Last Admin: 12/07/19 03:18 Dose: 300 mg Documented by: Potassium Chloride (Klor-Con M20) 20 meq PO DAILY [facility] Last Admin: 12/07/19 08:17 Dose: 20 meq Documented by: Rosuvastatin Calcium (Crestor) 20 mg PO DAILY [facility] Last Admin: 12/07/19 08:16 Dose: 20 mg Documented by: Senna (Senna) 8.6 mg PO BID PRN PRN Reason: Constipation Discontinued Medications Aspirin (Ecotrin) 325 mg PO BID [facility] Bupivacaine HCl (Sensorcaine-Mpf 0.25%) Confirm Administered Dose 30 ml .ROUTE .STK-MED ONE Stop: 12/06/19 07:42 Last Admin: 12/06/19 10:30 Dose: 30 ml Documented by: Cefazolin Sodium (Ancef) Confirm Administered Dose 2 gm .ROUTE .STK-MED ONE Stop: 12/06/19 07:43 Last Admin: 12/06/19 10:28 Dose: 2 gm Documented by: Clonazepam (Klonopin) 0.5 mg PO BID [facility] Morphine Sulfate 8 mg/Epinephrine HCl 0.3 mg/Cefuroxime Sodium 750 mg/Ketorolac Tromethamine 30 mg/Sodium Chloride 7.9 ml 0 mg .XX ASDIRECTED PRN PRN Reason: Pain Stop: 12/06/19 13:00 Last Admin: 12/06/19 10:30 Dose: 788.3 mg Documented by: Epinephrine HCl (Adrenalin) Confirm Administered Dose 1 mg .ROUTE .STK-MED ONE Stop: 12/06/19 07:23 Famotidine (Pepcid) 20 mg PO Q12H [facility] Last Admin: 12/06/19 19:29 Dose: Not Given Documented by: Fentanyl (Sublimaze) Confirm Administered Dose 100 mcg .ROUTE .STK-MED ONE Stop: 12/06/19 07:16 Fentanyl (Sublimaze) 50 mcg IVPUSH Q5M PRN PRN Reason: Pain Stop: 12/06/19 23:00 Hydromorphone HCl (Dilaudid) 0.5 mg IVPUSH Q10M PRN PRN Reason: Pain (severe 7-10) Stop: 12/06/19 23:00 Lactated Ringer's (Ringers, Lactated) 1,000 mls @ 125 mls/hr IV ASDIRECTED [facility] Stop: 12/06/19 23:00 Last Admin: 12/06/19 07:55 Dose: 125 mls/hr Documented by: Cefazolin Sodium/Dextrose 2 gm (/ Premix) 50 mls @ 100 mls/hr IV Q8H [facility] Stop: 12/06/19 23:14 Last Admin: 12/06/19 19:29 Dose: Not Given Documented by: Lidocaine HCl (Xylocaine-Mpf 1%) Confirm Administered Dose 4 mls @ as directed .ROUTE .STK-MED ONE Stop: 12/06/19 07:16 Cefazolin Sodium/Dextrose 2 gm (/ Premix) 50 mls @ 100 mls/hr IV Q8H [facility] Stop: 12/07/19 08:29 Last Admin: 12/07/19 09:57 Dose: 100 mls/hr Documented by: Lactated Ringer's (Ringers, Lactated) Confirm Administered Dose 1,000 mls @ as directed .ROUTE .STK-MED ONE Stop: 12/06/19 10:12 Lactated Ringer's (Ringers, Lactated) Confirm Administered Dose 1,000 mls @ as directed .ROUTE .STK-MED ONE Stop: 12/06/19 10:43 Iodine (Iodine 2% Mild Tincture) Confirm Administered Dose 30 ml .ROUTE .STK-MED ONE Stop: 12/06/19 07:42 Last Admin: 12/06/19 10:25 Dose: 18 ml Documented by: Ketorolac Tromethamine (Toradol) 15 mg IVPUSH Q6H PRN PRN Reason: Pain Ketorolac Tromethamine (Toradol) 15 mg IVPUSH Q6H PRN PRN Reason: Pain Ketorolac Tromethamine (Toradol) Confirm Administered Dose 30 mg .ROUTE .STK-MED ONE Stop: 12/06/19 10:54 Lidocaine/Sodium Bicarbonate (Buffered Lidocaine 1% In Ns 8.4%) 0.25 ml IDERM ONETIME PRN PRN Reason: Prior to IV Start Stop: 12/06/19 18:00 Last Admin: 12/06/19 07:55 Dose: 0.25 ml Documented by: Midazolam HCl (Versed 1 Mg/Ml) Confirm Administered Dose 2 mg .ROUTE .STK-MED ONE Stop: 12/06/19 07:16 Midazolam HCl (Versed 1 Mg/Ml) Confirm Administered Dose 2 mg .ROUTE .STK-MED ONE Stop: 12/06/19 09:30 Non-Formulary Medication (Hydrocortisone Valerate [Hydrocortisone Valerate 0.2% Crm]) 1 dose TOP ASDIRECTED PRN PRN Reason: skin complicaitons Ondansetron HCl (Zofran) 4 mg IVPUSH ONETIME PRN PRN Reason: Nausea/Vomiting Ondansetron HCl (Zofran) Confirm Administered Dose 4 mg .ROUTE .STK-MED ONE Stop: 12/06/19 10:12 Lacosamide [Vimpat] (200 Mg) 0 each PO BID [facility] Lacosamide [Vimpat] (200 Mg) 0 each PO BID@0400,1500 [facility] Last Admin: 12/06/19 17:00 Dose: 1 each Documented by: Phenytoin Sodium (Phenytoin) 300 mg PO BID [facility] Potassium Chloride (Klor-Con M20) 40 meq PO ONETIME ONE Stop: 12/06/19 16:31 Last Admin: 12/06/19 17:37 Dose: 40 meq Documented by: Propofol (Diprivan 20 Ml) Confirm Administered Dose 600 mg .ROUTE .STK-MED ONE Stop: 12/06/19 07:16 Rivaroxaban (Xarelto) 10 mg PO DAILY [facility] Last Admin: 12/07/19 08:18 Dose: 10 mg Documented by: Rivaroxaban (Xarelto) 10 mg PO ONETIME ONE Stop: 12/07/19 08:46 Last Admin: 12/07/19 10:01 Dose: 10 mg Documented by: Ropivacaine (Naropin 0.5%) Confirm Administered Dose 30 ml .ROUTE .STK-MED ONE Stop: 12/06/19 07:23 Sodium Chloride (Saline Flush) 10 ml FLUSH ASDIRECTED PRN PRN Reason: Keep Vein Open Stop: 12/06/19 18:00 Tranexamic Acid (Cyklokapron) Confirm Administered Dose 1,000 mg .ROUTE .STK-MED ONE Stop: 12/06/19 07:42 Last Admin: 12/06/19 10:34 Dose: 1,000 mg Documented by: Vancomycin HCl (Vancomycin) Confirm Administered Dose 1 gm .ROUTE .STK-MED ONE Stop: 12/06/19 07:42 Last Admin: 12/06/19 10:36 Dose: 1 gm Documented by:
[2019-12-07 20:41] VITALS: BP 142/86; PULSE 87
[2019-12-08] MEDS ORDERED: Aspirin 325 MG Tab.EC PO SCH (09:00)
--- NOTE | 2019-12-10 12:29 | PCM.OPNOTE ---
- General Post-Op/Procedure Note Date of Surgery/Procedure: 12/06/19 Operative Procedure(s): right total knee arthroplasty Pre Op Diagnosis: right knee osteoarthrosis Post-Op Diagnosis: Same Anesthesia Technique: Local, MAC, Spinal Primary Surgeon: Willian Horowitz Anesthesia Provider: Kyle Brambila Social Services Designee: Arianne Red Social Services Designee: Hailey Herrera in mLs: 5 Complications: None Condition: Good Free Text/Narrative:: 3/ 9mm 29x9
--- NOTE | 2019-12-12 21:59 | OR ---
DATE OF OPERATION: 12/06/2019 SURGEON: Willian Horowitz MD OPERATION PERFORMED: Right total knee arthroplasty. PREOPERATIVE DIAGNOSIS: Right knee osteoarthrosis. POSTOPERATIVE DIAGNOSIS: Right knee osteoarthrosis. ANESTHESIA: Local MAC with spinal. ANESTHESIA PROVIDER: Kyle Brambila CRNA. FLATWORK SUPERVISOR: Arianne Red PA-C; and Hailey Herrera LPN. ESTIMATED BLOOD LOSS: 5 mL. COMPLICATIONS: None. CONDITION: Stable. IMPLANTS: 1. [place] size 3 cemented PS femur. 2. [place] size 3 cemented [place] tibial base plate. 3. Kurt size 3, 9 mm PS X3 polyethylene insert. 4. [place] size 29 x 9 mm cemented asymmetric patella. DESCRIPTION OF PROCEDURE: The patient was identified in the preop holding area. Proper site was marked and identified by the surgeon. The patient was taken back to the operating theater. After adequate anesthesia, the patient's right lower extremity had a nonsterile tourniquet applied and it was sterilely prepped and draped in the usual sterile fashion. OR time-out was performed. The patient received 2 g IV Ancef. At this time, the right lower extremity was exsanguinated. Tourniquet was insufflated to 300 mmHg. Standard medial parapatellar incision was made. Medial parapatellar arthrotomy was created. Deep fibers of the MCL were raised and anterior fat pad was resected. At this time, attention was turned to the patella. Patella measured at 22, it was resected to a 13 for a 29 x 9 mm patella. Drill holes were then drilled and found to be in adequate position. The drill was then drilled in the distal femur and the intramedullary distal femoral cutting guide was then placed. 8 mm was resected off the distal femur and was found to be an adequate resection. Sizing guide was placed. It was found to be a size 3 cemented PS femur that was shown on the implant record at the beginning of this dictation. The drill holes were drilled for the epicondylar axis using [place] line and epicondyles as reference. At this time, the 4-in-1 cutting block was placed. An anterior posterior and anterior and posterior chamfer cuts were then completed. Box cut was completed at this time. Attention was turned to the tibia. The posterior medial lateral retractors were placed. The extramedullary tibial guide was placed. It was placed in the old footprint of the ACL. It was aligned with the center of the ankle and 0 degrees of slope, 9 mm was then resected off the unaffected side. There was found to be an acceptable reduction. At this time, posterior osteophytes were removed along with medial and lateral meniscus. A trial implant was placed with a correct sized tibia that was mentioned at the beginning of the dictation. A Kurt size 3, 9 mm PS X3 polyethylene insert was then placed. The patient's knee was brought through range of motion. The patella was tracking centrally and was stable to varus and valgus stress. Alignment was found to be roughly at 0 degrees. The tibia was stamped and drilled in proper rotation. All cut surfaces were irrigated and dried. The universal tibial base plate was impacted in place. Next, the Kurt size 3 cemented PS femur impacted into place and the Kurt size 3, 9 mm PS X3 polyethylene insert was placed. The patient's knee was brought into full extension. The patella was then cemented in place at this time. One liter dilute Betadine solution was irrigated through the knee along with 3 L of pulse lavage irrigation with Ancef. Periarticular injection was then completed. The patient's knee was brought through a range of motion. Once the cement had time to set up and it was found to be stable to varus valgus stress, the patella was tracking centrally with full range of motion. At this time, a #2 barbed suture was used for closure of the medial parapatellar arthrotomy. Topical tranexamic acid was placed. 2-0 Vicryl was used subcutaneously, Prineo was used for the skin. The patient tolerated the procedure well and was sent to the PACU in stable condition. MMODAL /[id number] BLAKE
== END 2019-12-07 16:40 | disposition home or self-care (01) | DRG 470 ==
LOC: JD.MS 12-06 06:35 → JD.SDS 12-06 06:40 → JD.MS 12-06 06:40 → JD.SDS 12-06 07:21 → JD.MS 12-06 07:22 → JD.SDS 12-06 07:35 → UNDOADMIN 12-06 07:36 → JD.MS 12-06 07:36 → EDSTATUS 12-06 10:00 → JD.SDS 12-07 16:40 → JD.MS 12-07 16:40 → UNDODISIN 12-07 16:40
PROVIDERS: ADMIT Orthopaedic Surgery; ATTEND Orthopaedic Surgery
PROC: 0SRC0J9 Replacement of Right Knee Joint with Synthetic Substitute, Cemented, Open Approach (ICD-10-PCS; principal; 2019-12-06)
DX: M17.11 Unilateral primary osteoarthritis, right knee (principal); E78.00 Pure hypercholesterolemia, unspecified; I10 Essential (primary) hypertension; F41.9 Anxiety disorder, unspecified; E66.9 Obesity, unspecified; E78.5 Hyperlipidemia, unspecified; G40.909 Epilepsy, unspecified, not intractable, without status epilepticus; D69.6 Thrombocytopenia, unspecified; E87.6 Hypokalemia; E83.42 Hypomagnesemia; Z79.899 Other long term (current) drug therapy; Z68.38 Body mass index [BMI] 38.0-38.9, adult; Z20.828 Contact with and (suspected) exposure to other viral communicable diseases
CPT/HCPCS: 01402; 36415; 64450; 73560-26-RT; 73560-RT; 80048; 80053; 83036; 83735; 84100; 84484; 85025; 85027; 87641; 97110-GP; 97116-GP; 97161-GP; 97165-GO; 97535-GO; 99222; 99231; A9270-GY; C1713; C1776; J0171; J0690; J0697; J1885; J2001; J2250; J2270; J2405; J2704; J2795; J3010; J3370; J3475; J3490; J7120; U0002

== ENCOUNTER 2020-03-19 14:53 | Emergency (ER) | payer MEDICARE, MEDICAID ==
[2020-03-19 15:05] VITALS: BP 161/91; PULSE 87
--- NOTE | 2020-03-19 15:22 | EDM.PDOC ---
ED HPI GENERAL MEDICAL PROBLEM - General Chief Complaint: Lower Extremity Injury/Pain Stated Complaint: RT KNEE INJURY Time Seen by Provider: 03/19/20 15:04 Source of Information: Reports: Patient, RN Notes Reviewed History Limitations: Reports: No Limitations - History of Present Illness INITIAL COMMENTS - FREE TEXT/NARRATIVE: Patient is a 49-year-old female who presents to the ED for evaluation of her right knee injury. She had a recent knee replacement in November [address] Horowitz. She states that yesterday she was going to get the mail, stepped off the curb and did not see where she was going, ended up falling backwards. She states she has pain into her anterior right knee, there is some mild bruising appreciated, she has a bandage over the area. She states that there was a "hole" there since the surgery, and no more recent abrasions. She points to the anterior knee being the source of her pain. She was able to walk on it yesterday, and she did ambulate back to the ER without much difficulty. She states she is taking small cautious steps however. She is denying any numbness or tingling into her toes, or any hip pain. She did not take any sort of pain medication like Tylenol or ibuprofen at home. She would rate her pain at a 6 out of 10. Patient denies any other sick-like symptoms, fever/chills, cough/shortness of breath, nausea/vomiting/diarrhea. Right Knee Pain Score (Numeric/FACES): 6 - Related Data Allergies Allergy/AdvReac Type Severity Reaction Status Date / Time No Known Allergies Allergy Verified 03/19/20 15:05 Home Meds: Home Meds Phenytoin Sodium Extended [Dilantin] 300 mg PO BID 02/18/14 [History] ClonazePAM [KlonoPIN] 0.5 mg PO BID 06/20/14 [History] Cholecalciferol (Vitamin D3) [Vitamin D3] 5,000 unit PO DAILY 12/05/19 [History] Divalproex Sodium [Depakote] 1,500 mg PO BID 12/05/19 [History] Hydrocortisone Valerate [Hydrocortisone Valerate 0.2% Crm] 1 dose TOP ASDIRECTED PRN 12/05/19 [History] Lacosamide [Vimpat] 200 mg PO BID 08/16/20 [History] Multivitamin 1 tab PO DAILY 12/05/19 [History] Potassium Chloride 20 meq PO DAILY 12/05/19 [History] Rosuvastatin Calcium 20 mg PO DAILY 12/05/19 [History] Acetaminophen/oxyCODONE [Percocet 325-5 MG] 1 - 2 tab PO Q4H PRN #60 tablet 12/07/19 [Rx] Aspirin [Aspirin EC] 325 mg PO BID #60 tablet. 12/07/19 [Rx] Docusate Sodium [Colace] 100 mg PO BID #60 cap 12/07/19 [Rx] Famotidine [Pepcid] 20 mg PO Q12H #60 tablet 12/07/19 [Rx] Sennosides [Senna] 8.6 mg PO BID PRN tablet 12/07/19 [Rx] bisacodyL [Dulcolax] 5 mg PO DAILY PRN tablet 12/07/19 [Rx] Past Medical History HEENT History: Reports: Impaired Vision, Other (See Below) Other HEENT History: eustachian tube dysfunction, wears glasses Cardiovascular History: Reports: High Cholesterol, Hypertension, Other (See Below) Other Cardiovascular History: peripheral edema Musculoskeletal History: Reports: Osteoarthritis, Other (See Below) Other Musculoskeletal History: left radial head fracture Neurological History: Reports: Seizure Psychiatric History: Reports: Anxiety Endocrine/Metabolic History: Reports: Obesity/BMI 30+ - Past Surgical History HEENT Surgical History: Reports: Tonsillectomy GI Surgical History: Reports: Hernia Repair/Other Female Surgical History: Reports: Tubal Ligation Musculoskeletal Surgical History: Reports: Knee Replacement (Right total knee 11/2019) Social & Family History - Family History Family Medical History: No Pertinent Family History - Caffeine Use Caffeine Use: Reports: Soda - Living Situation & Occupation Living situation: Reports: Single Occupation: Disabled Review of Systems - Review of Systems Review Of Systems: Comprehensive ROS is negative, except as noted in HPI. ED EXAM, GENERAL - Physical Exam Exam: See Below Exam Limited By: No Limitations General Appearance: Alert, WD/WN, No Apparent Distress Respiratory/Chest: No Respiratory Distress, Lungs Clear, Normal Breath Sounds, No Accessory Muscle Use, Chest Non-Tender Cardiovascular: Normal Peripheral Pulses, Regular Rate, Rhythm, No Edema, No Murmur Peripheral Pulses: 2+: Dorsalis Pedis (L), Dorsalis Pedis (R) Extremities: Normal Capillary Refill, Limited Range of Motion (of right knee d/t pain) Neurological: Alert, Oriented, Normal Cognition, No Motor/Sensory Deficits Psychiatric: Normal Affect, Normal Mood Skin Exam: Warm, Dry, Intact, No Rash, Ecchymosis (noted to anterior right knee) Course - Vital Signs Last Recorded V/S: Last Vital Signs Temp 98.1 F 03/19/20 15:03 Pulse 87 03/19/20 15:03 Resp 18 03/19/20 15:03 BP 161/91 H 03/19/20 15:03 Pulse Ox 98 03/19/20 15:03 - Orders/Labs/Meds Orders: Active Orders 24 hr Category Date Time Status Knee Min 4V Rt [CR] Stat Exams 03/19/20 15:08 Taken - Re-Assessments/Exams Free Text/Narrative Re-Assessment/Exam: 03/19/20 15:22 Patient presents to the ED for her right knee injury. We will get x-rays for today's purposes to rule out fracture. There is quite a large hematoma appreciated. If everything remains intact and there is no sign of a fracture, will discharge to have her follow-up with Dr. Horowitz in a more urgent fashion. 03/19/20 15:33 X-ray has been taken, demonstrates no acute fracture or abnormality as read by myself and Dr. Balderas. Official radiology read is still pending. 03/19/20 16:03 Official radiology read does show marked anterior soft tissue swelling, but no fracture or evidence for hardware failure or infection related to the right total knee arthroplasty is noted. Patient be discharged home with general recommendations and have her follow-up with Dr. Horowitz or her regular provider sometime this week for recheck to make sure everything is getting better as expected. Departure - Departure Time of Disposition: 16:03 Disposition: Home, Self-Care 01 Condition: Good Clinical Impression: Right anterior knee pain Fall Qualifiers: Encounter type: initial encounter Qualified Code(s): W19.XXXA - Unspecified fall, initial encounter - Discharge Information *PRESCRIPTION DRUG MONITORING PROGRAM REVIEWED*: No *COPY OF PRESCRIPTION DRUG MONITORING REPORT IN PATIENT KAYLYNN: No Instructions: Musculoskeletal Pain Referrals: Breanne Junior NP [Primary Care Provider] - Forms: ED Department Discharge Additional Instructions: You have been evaluated in the ED for your right knee injury. Your x-ray demonstrated no acute fracture of your right knee, the prosthesis was in good alignment. Please use ice as tolerated to the affected area. Please try to elevate the affected area to relieve swelling. You may take Tylenol 500 mg or ibuprofen 600mg q6 hrs for pain relief. Please do so until you have a tolerable level of pain with activity. Do not exceed 4000mg Tylenol or 3200mg ibuprofen in a 24 hour time period. I would recommend you follow-up with your regular care provider or Dr. Horowitz sometime this week to make sure that everything is healing as expected. Please return to ED if your symptoms should change or worsen. Sepsis Event Note (ED) - Evaluation Sepsis Screening Result: No Definite Risk - Focused Exam Vital Signs: Vital Signs Temp Pulse Resp BP Pulse Ox 03/19/20 15:03 98.1 F 87 18 161/91 H 98 - My Orders Last 24 Hours: My Active Orders 03/19/20 15:08 Knee Min 4V Rt [CR] Stat - Assessment/Plan Last 24 Hours: My Active Orders 03/19/20 15:08 Knee Min 4V Rt [CR] Stat
--- NOTE | 2020-03-20 13:22 | CR ---
PROCEDURE INFORMATION: Exam: XR Right Knee Exam date and time: 03/19/2020 3:22 PM Age: 49 years old Clinical indication: Injury or trauma; Fall; Sprain or strain; Patella or knee; Right TECHNIQUE: Imaging protocol: XR Right knee. Views: 4 or more views. COMPARISON: CR Knee 1V or 2V Rt 12/06/2019 11:11 AM FINDINGS: Bones/joints: A right total knee arthroplasty is present in anatomic alignment. There is no evidence for hardware failure or infection. No fractures are identified. Soft tissues: Moderate grade anterior swelling is present. This could to recent trauma. IMPRESSION: Marked anterior soft tissue swelling. No fracture or evidence for hardware failure or infection related to the right total knee arthroplasty Thank you for allowing us to participate in the care of your patient. Dictated and Authenticated by: Manny Callaway MD 03/19/2020 4:58 PM Central Time ([place] & [place]) [place]
== END 2020-03-19 16:15 | disposition home or self-care (01) ==
LOC: JD.ED 14:53
DX: S80.01XA Contusion of right knee, initial encounter (principal); I10 Essential (primary) hypertension; E78.00 Pure hypercholesterolemia, unspecified; E66.9 Obesity, unspecified; F41.9 Anxiety disorder, unspecified; Z98.51 Tubal ligation status; Z90.49 Acquired absence of other specified parts of digestive tract; Z79.82 Long term (current) use of aspirin; Z79.899 Other long term (current) drug therapy; W22.8XXA Striking against or struck by other objects, initial encounter
CPT/HCPCS: 73564-26-RT; 73564-RT; 99282; 99283

== ENCOUNTER 2024-03-25 05:35 | Observation (INO) | payer MEDICARE, MEDICAID ==
[2024-03-25 06:05] LABS: BASOPHILS PERCENT AUTO 0.3 % (0.0-1.0); EOSINOPHILS PERCENT AUTO 0.1 % (0.0-6.0); HEMATOCRIT 40.4 % (37.0-47.0); HEMOGLOBIN 13.2 gm/dl (12.0-16.0); IMMATURE GRAN ABSOLUTE AUTO 0.01 K/mm3 (0.00-0.05); IMMATURE GRAN PERCENT AUTO 0.1 % (0.0-0.4); LYMPHOCYTES ABSOLUTE AUTO 1.2 K/mm3 (1.0-4.8); LYMPHOCYTES PERCENT AUTO 16.4 % (24.0-44.0); MEAN CORPUSCULAR HEMOGLOBIN 32.4 pg (28.0-32.0); MEAN CORPUSCULAR HGB CONC 32.7 g/dl (32.0-36.0); MONOCYTES ABSOLUTE AUTO 1.5 K/mm3 (0.0-0.8); MONOCYTES PERCENT AUTO 21.2 % (0.0-8.0); NEUTROPHILS ABSOLUTE AUTO 4.5 K/mm3 (1.8-7.7); NEUTROPHILS PERCENT AUTO 61.9 % (41.0-71.0); PLATELET COUNT,PLT 151 K/mm3 (150-400); RED BLOOD CELL COUNT 4.08 M/mm3 (4.10-5.30); WHITE BLOOD CELL COUNT,WBC 7.21 K/mm3 (3.9-11.3)
[2024-03-25 06:31] LABS: A/G RATIO 0.5 (1-2); ALBUMIN 2.6 g/dl (3.4-5.0); ANION GAP 14.1 (5-15); BILIRUBIN TOTAL 0.5 mg/dL (0.2-1.0); BUN/CREATININE RATIO 24.4 (14-18); CREATININE 0.9 mg/dL (0.55-1.02); EST CRCL DRUG DOSING (CG) 60.99 mL/min; POTASSIUM,K 4.1 mEq/L (3.5-5.1); PROTEIN TOTAL,TP 7.5 g/dl (6.4-8.2)
[2024-03-25 07:38] LABS: APPEARANCE,URINE SLT CLOUDY (Clear); BILIRUBIN,URINE 1+ (Negative); COLOR,URINE YELLOW (Yellow); GLUCOSE,URINE NEGATIVE (Negative); KETONES,URINE 1+ (Negative); LEUKOCYTE ESTERASE,URINE 1+ (Negative); NITRITE,URINE NEGATIVE (Negative); OCCULT BLOOD,URINE TRACE-INTACT (Negative); PH,URINE 5.5 (5.0-8.0); PROTEIN,URINE 1+ (Negative); UROBILINOGEN,URINE 0.2 (0.2-1.0)
[2024-03-25 07:48] LABS: BARBITURATE SCREEN,URINE PRESUMPTIVE POSITIVE (CUTOFF=200); BENZODIAZEPINES SCREEN,URINE PRESUMPTIVE POSITIVE (CUTOFF=150); BUPRENORPHINE SCREEN,URINE NEGATIVE (CUTOFF=10); METHADONE SCREEN, URINE NEGATIVE (CUTOFF=200); METHAMPHETAMINES SCREEN, URINE NEGATIVE (CUTOFF=500); OXYCODONE SCREEN,URINE NEGATIVE (CUT0FF=100); THC SCREEN,URINE 20 NG/ML NEGATIVE (CUTOFF=50)
[2024-03-25 07:51] LABS: AMPHETAMINES SCREEN, URINE NEGATIVE (CUTOFF=500)
[2024-03-25 08:13] LABS: RBC,URINE 0-5 /hpf (0-5)
[2024-03-25 08:14] LABS: BACTERIA,URINE MODERATE /hpf (FEW); MUCUS,URINE MODERATE /hpf (FEW); WBC,URINE 20-30 /hpf (0-5)
[2024-03-25 14:55] LABS: FOLIC ACID 6.5 ng/mL (8.6-58.9)
[2024-03-25 14:57] LABS: TSH 0.905 uIU/mL (0.358-3.74)
[2024-03-25] MEDS ORDERED: NAPROXEN 250 MG PO PRN (15:01)
[2024-03-25] MEDS ORDERED: Sodium Chloride 0.9% 10 ML Syringe FLUSH PRN (15:03)
[2024-03-25] MEDS: Folic Acid 1 MG Tab PO SCH (15:29)
[2024-03-25] MEDS: Enoxaparin 40 MG/0.4 ML Syringe SUBCUT SCH (15:29)
[2024-03-25] MEDS ORDERED: LORazepam 2 MG/ML SDV IVPUSH PRN (15:45)
[2024-03-25] MEDS: levETIRAcetam 500 MG Tab PO SCH (21:10)
[2024-03-25] MEDS: Divalproex Sodium Delayed-Release 500 MG Tab.CR PO SCH (21:14)
[2024-03-25] MEDS: Potassium Chloride 20 MEQ Tab.ER PO SCH (21:14)
[2024-03-25] MEDS: ClonazePAM 0.5 MG Tab PO SCH (21:15)
[2024-03-25] MEDS: Phenytoin 100 MG Cap.ER PO SCH (21:15)
[2024-03-25] MEDS: Sodium Chloride 0.9% 10 ML Syringe FLUSH SCH (21:18)
[2024-03-26] MEDS: Metoprolol Succinate 50 MG Tab.ER PO SCH (09:27)
[2024-03-26] MEDS: Rosuvastatin 10 MG Tab PO SCH (09:27)
[2024-03-26] MEDS: Multivitamin Tab PO SCH (09:27)
[2024-03-27] MEDS: Acetaminophen 325 MG Tab PO PRN (04:11)
[2024-03-27] MEDS: Docusate Sodium 100 MG Cap PO PRN (08:19)
[2024-03-27] MEDS: cefTRIAXone 1 GM in Sodium Chloride 0.9% 50 ML IV SCH (17:54)
[2024-03-27 21:42] LABS: KEPPRA 11 ug/mL (10-40)
[2024-03-28] MEDS: Polyethylene Glycol 3350 Powder 17 GM Packet PO SCH (09:56)
[2024-03-28] MEDS: Sennosides 8.6 MG Tab PO PRN (16:45)
[2024-03-29] MEDS: Ondansetron 4 MG Tab.DIS PO PRN (02:07)
[2024-03-29] MEDS: Doxycycline Monohydrate 100 MG Cap PO SCH (09:38)
[2024-03-29] MEDS: Benzonatate 100 MG Cap PO PRN (20:25)
[2024-04-01] MEDS: Benzonatate 100 MG Cap PO ONE (10:59)
[2024-04-01] MEDS: Fluticasone NASAL Spray 16 GM Bottle NASBOTH SCH (12:55)
[2024-04-03] MEDS: guaiFENesin/Dextromethorphan 100-10 MG/5 ML Soln 5 ML Cup PO PRN (04:21)
[2024-04-09 08:00] VITALS: BP 112/77; PULSE 90
== END 2024-04-09 10:35 ==
LOC: JD.ED 05:35 → JD.MS 14:01
PROVIDERS: ADMIT Student in an Organized Health Care Education/Training Program; ATTEND Internal Medicine
DX: N39.0 Urinary tract infection, site not specified (principal); B95.2 Enterococcus as the cause of diseases classified elsewhere; R53.1 Weakness; G40.909 Epilepsy, unspecified, not intractable, without status epilepticus; E53.8 Deficiency of other specified B group vitamins; E88.09 Other disorders of plasma-protein metabolism, not elsewhere classified; I10 Essential (primary) hypertension; E78.00 Pure hypercholesterolemia, unspecified; F41.9 Anxiety disorder, unspecified; R29.6 Repeated falls; Z79.899 Other long term (current) drug therapy
CPT/HCPCS: 36415; 80053; 80164; 80177; 80185; 80306; 81001; 82607; 82746; 83036; 84443; 85025; 87086; 87088; 87186; 87428; 93005; 94760; 96365; 96372; 96376; 97110; 97116; 97161; 97530; 99285; A9270; G0378; J0696; J1650; J3490; U0002; 93010; 99284